=== PATIENT | male | born 1955 | race Caucasian/White ===

== ENCOUNTER 2016-12-24 05:22 | Observation (INO) | payer SELFPAY ==
[2016-12-24] VITALS (8 sets, daily range): BP systolic 103–189; BP diastolic 11–101; PULSE 76–107; RESP 16–22; TEMP 97.9–98.8; O2SAT 96–99
[~2016-12-24] VITALS: Ht 177.8 cm; Wt 66.0 kg
[2016-12-24] MEDS ORDERED: ONDANSETRON HCL 4 MG/2 ML VIAL IV ONE (05:45)
[2016-12-24] MEDS ORDERED: SODIUM CHLOR 0.9% 1000 ML INJ 1,000 ML IV ONE ×2 (05:45→07:00)
[2016-12-24] MEDS ORDERED: MORPHINE SULFATE 4 MG/ML INJ IV PUSH ONE (05:45)
[2016-12-24 05:59] LABS: AUTOMATED NEUTROPHIL # 4.8 TH/MM3 (1.8-7.7); BASOPHIL # 0.1 TH/MM3 (0-0.2); BASOPHIL % 0.8 % (0.0-2.0); EOSINOPHIL # 0.2 TH/MM3 (0-0.4); EOSINOPHIL % 2.3 % (0.0-4.0); HEMATOCRIT 41.1 % (39.0-51.0); HEMO FLAGS DIFF FINAL; LYMPH % 31.3 % (9.0-44.0); LYMPHOCYTE # 2.6 TH/MM3 (1.0-4.8); MEAN CELL VOLUME 98.6 FL (80.0-100.0); MEAN CORPUSCULAR HEMOGLOBIN 34.1 PG (27.0-34.0); MEAN CORPUSCULAR HGB CONC 34.6 % (32.0-36.0); MONO % 8.4 % (0.0-8.0); NEUT % 57.2 % (16.0-70.0); PLATELET COUNT 326 TH/MM3 (150-450); RED BLOOD COUNT 4.17 MIL/MM3 (4.50-5.90); RED CELL DISTRIBUTION WIDTH 12.6 % (11.6-17.2); WHITE BLOOD COUNT 8.3 TH/MM3 (4.0-11.0)
--- NOTE | 2016-12-24 06:19 | PD ---
HPI Chief Complaint: Abdominal Pain Time Seen by Provider: 05:32 Travel History International Travel<30 days: No Contact w/Intl Traveler<30days: No Traveled to known affect area: No History of Present Illness HPI The patient is a 61 year old male who presents to the [facility] emergency department with a history of 2 separate concerns. #1, the patient reports that over the last week and a half he's had back pain that he reports is all throughout his back and seems to change locations. He reports that the pain is not superficial. He denies the pain being brought on by any particular activity. The patient reports that the pain seems to be getting worse with time. He denies any trauma or injury. #2, the patient reports having abdominal pain off and on for the last year. He reports that the pain is an indigestion sensation with intermittent stabbing pains in the midepigastric area. The patient reports that over the last 6 months he has had a 35 pound weight loss. He reports that he does have an area of bulging in the right groin. He reports that he was evaluated yesterday in an urgent care center and told that this was likely a hernia, however as he did not have capability for imaging they recommended he go to the emergency department. He reports that he had to arrange for the care of this 92-year-old mother, therefore he could not come prior to this. The patient reports that he's had this lump for many years. He reports that when it was really small he was treated with an antibiotic and it seemed to go away. He reports that over the years it recurred and has gradually gotten bigger with time. He denies having any pain associated with it. He denies having any nausea or vomiting. He reports that he had diarrhea on Thursday and Thursday 2. He reports that a week ago he had a dark/black stool. He has not seen a primary care physician for the last 20 years for a physical. He denies ever having colonoscopy previously. The patient reports that he smokes 15 cigarettes per day. The patient denies taking anti-inflammatories on a regular basis. He reports that he did try taking Aleve and Tylenol for his back pain without relief, therefore he discontinued it. The patient reports that he usually drinks 3-6 beers over the week. Otherwise on review of systems, the patient denies any recent fevers or new or worsening cough, congestion, neck pain, chest pain, shortness of breath, urinary symptoms, or neurologic symptoms. [facility] Past Medical History Narrative Medical The patient's past medical history is significant for tobacco abuse. Medical History: Denies Significant Hx Diminished Hearing: No Tetanus Vaccination: Unknown Influenza Vaccination: No Past Surgical History Narrative Surgical The patient's past surgical history is significant for a tonsillectomy Tonsillectomy: Yes Social History Alcohol Use: Yes (3-6 beers per week) Tobacco Use: Yes (12-15 CIG DAILY) Substance Use: No Allergies-Medications (Allergen,Severity, Reaction): Coded Allergies: No Known Allergies (Unverified , 12/24/16) Reported Meds & Prescriptions Reported Meds & Active Scripts Active No Active Prescriptions or Reported Medications Review of Systems Except as stated in HPI: all other systems reviewed are Neg General / Constitutional: No: Fever Eyes: No: Visual changes HENT: No: Headaches Cardiovascular: No: Chest Pain or Discomfort, Dyspnea on exertion Respiratory: No: Shortness of Breath Gastrointestinal: Positive: Diarrhea, Changes in Bowel Habits, Indigestion, No : Nausea, Vomiting, Abdominal Pain, Loss of Appetite Genitourinary: No: Urgency, Frequency, Dysuria, Flank Pain Musculoskeletal: Positive: Myalgias, Arthralgias, Pain Skin: No Rash Neurologic: No: Weakness, Focal Abnormalities, Change in Mentation, Slurred Speech, Sensory Disturbance Psychiatric: No: Depression Endocrine: No: Polydipsia Hematologic/Lymphatic: No: Easy Bruising Physical Exam Narrative General: The patient is a well-developed thin appearing male in no acute distress. Head and Neck exam: Head is normocephalic atraumatic. Eyes: EOMI, pupils are equal round and reactive to light. Nose: Midline septum with pink mucous membranes Mouth: Dentition unremarkable. Moist mucus membranes. Posterior oropharynx is not erythematous. No tonsillar hypertrophy. Uvula midline. Airway patent. Neck: No palpable lymphadenopathy. No nuchal rigidity. No thyromegaly. Cardiovascular: Sinus tachycardia in the low 100s without murmurs, gallops, or rubs. No pulse deficit to the extremities and simultaneous auscultation and palpation of his radial artery. Lungs: Clear to auscultation bilaterally. No wheezes, rhonchi, or rales. Abdomen: Soft, with tenderness on palpation in the midepigastric area and right upper quadrant of the abdomen. No guarding, rebound, or rigidity. Negative Columbus sign. No tenderness on palpation of McBurney's point. The patient on examination of the right groin is noted to have an area of swelling that is approximately 10 cm, cystic on palpation just above the inguinal line. Extremities: No clubbing, cyanosis, or edema. 2+ pulses in all 4 extremities. No calf tenderness on palpation. Back: No spinous process tenderness to palpation. No costovertebral angle tenderness to palpation. No erythema or ecchymosis. No step-off or crepitus. Neurologic Exam: Cranial nerves 2-12 were intact on exam. Strength is 5/5 in all 4 extremities. No sensory deficits noted. Skin Exam: No rash noted. Intact skin that is warm and dry. Data Data Last Documented VS Vital Signs Date Time Temp Pulse Resp B/P Pulse Ox O2 Delivery O2 Flow Rate FiO2 12/24/16 06:03 18 12/24/16 05:57 99 149/79 97 Room Air 12/24/16 05:23 98.8 Orders Electrocardiogram (12/24/16 05:38) Complete Blood Count With Diff (12/24/16 05:38) Comprehensive Metabolic Panel (12/24/16 05:38) C-Reactive Protein (Crp) (12/24/16 05:38) Lipase (12/24/16 05:38) Urinalysis - C+S If Indicated (12/24/16 05:38) Chest, Single Ap (12/24/16 05:38) Ct Abd/Pel W Iv Contrast(Rout) (12/24/16 05:38) Iv Access Insert/Monitor (12/24/16 05:38) Ecg Monitoring (12/24/16 05:38) Oximetry (12/24/16 05:38) Lactic Acid (12/24/16 05:38) Sodium Chlor 0.9% 1000 Ml Inj (Ns 1000 M (12/24/16 05:45) Ondansetron Inj (Zofran Inj) (12/24/16 05:45) Morphine Inj (Morphine Inj) (12/24/16 05:45) Thyroid Stimulating Hormone (12/24/16 06:22) Labs Laboratory Tests Test 12/24/16 05:45 White Blood Count 8.3 TH/MM3 Red Blood Count 4.17 MIL/MM3 Hemoglobin 14.2 GM/DL Hematocrit 41.1 % Mean Corpuscular Volume 98.6 FL Mean Corpuscular Hemoglobin 34.1 PG Mean Corpuscular Hemoglobin 34.6 % Concent Red Cell Distribution Width 12.6 % Platelet Count 326 TH/MM3 Mean Platelet Volume 7.0 FL Neutrophils (%) (Auto) 57.2 % Lymphocytes (%) (Auto) 31.3 % Monocytes (%) (Auto) 8.4 % Eosinophils (%) (Auto) 2.3 % Basophils (%) (Auto) 0.8 % Neutrophils # (Auto) 4.8 TH/MM3 Lymphocytes # (Auto) 2.6 TH/MM3 Monocytes # (Auto) 0.7 TH/MM3 Eosinophils # (Auto) 0.2 TH/MM3 Basophils # (Auto) 0.1 TH/MM3 CBC Comment DIFF FINAL Differential Comment Sodium Level 136 MEQ/L Potassium Level 4.0 MEQ/L Chloride Level 99 MEQ/L Carbon Dioxide Level 28.7 MEQ/L Anion Gap 8 MEQ/L Blood Urea Nitrogen 13 MG/DL Creatinine 0.78 MG/DL Estimat Glomerular Filtration 101 ML/MIN Rate Random Glucose 119 MG/DL Lactic Acid Level 2.1 mmol/L Calcium Level 9.4 MG/DL Total Bilirubin 0.4 MG/DL Aspartate Amino Transf 9 U/L (AST/SGOT) Alanine Aminotransferase 18 U/L (ALT/SGPT) Alkaline Phosphatase 92 U/L C-Reactive Protein LESS THAN 0.29 MG/DL Total Protein 7.4 GM/DL Albumin 4.3 GM/DL Lipase 269 U/L MDM Medical Decision Making Medical Screen Exam Complete: Yes Emergency Medical Condition: Yes Medical Record Reviewed: Yes Differential Diagnosis Kidney stone, versus bowel obstruction, versus mass, versus endocrine disorder. Narrative Course During the course of the patients emergency department visit, the patients history, examination, and differential diagnosis were reviewed with the patient. The patient had IV access obtained and blood work sent for analysis. The patient is placed on a dough cutter with oximetry and blood pressure monitoring. An EKG was done on arrival. The patient's EKG shows a sinus tachycardia rate of 107, QRS duration 70 ms, QTC 380 ms. The patient has no acute ST segment elevation or depression. A chest x-ray was ordered, CT scan of the abdomen and pelvis has been ordered. The patient was initially provided a normal saline 1 L IV fluid bolus, morphine 4 mg IV, Zofran 4 mg IV. The patients laboratory studies were reviewed and remarkable for a white count of 8.3, hemoglobin 14.2, platelets 326 with a 8.4 monocytes. CMP is remarkable for a glucose of 119, AST 9, C-reactive protein less than 0.29, lipase 269, lactic acid 2.1, TSH is pending. Urinalysis is pending. Radiology studies were reviewed and remarkable for a chest x-ray showed no acute abnormality. CT scan of the abdomen and pelvis is pending. Patient's results are pending at the conclusion of my shift, the patient's case will be checked out to the oncoming emergency physician to disposition based on the conclusion of his workup. Given the patient's elevated lactic acid and additional normal saline 500 bolus was administered. Diagnosis Primary Impression: Back pain Qualified Code: M54.9 - Acute back pain, unspecified back location, unspecified back pain laterality Additional Impressions: Abdominal pain Qualified Code: R10.10 - Pain of upper abdomen Weight loss Right groin mass Scripts No Active Prescriptions or Reported Meds Mis Mccullough MD Dec 24, 2016 06:19
[2016-12-24 06:21] LABS: ALT (GPT) 18 U/L (12-78); ANION GAP 8 MEQ/L (5-15); AST (GOT) 9 U/L (15-37); BICARBONATE 28.7 MEQ/L (21.0-32.0); BLOOD UREA NITROGEN 13 MG/DL (7-18); CHLORIDE 99 MEQ/L (98-107); GLOMERULAR FILTRATION RATE 101 ML/MIN (>89); SODIUM (NA) 136 MEQ/L (136-145)
[2016-12-24 06:24] LABS: ALKALINE PHOSPHATASE 92 U/L (45-117); TOTAL BILIRUBIN ADULT 0.4 MG/DL (0.2-1.0)
--- NOTE | 2016-12-24 06:45 | RADRPT ---
EXAM DATE/TIME: 12/24/2016 06:10 [facility] COMPARISON: No previous studies available for comparison. INDICATIONS : Chest pain. MEDICAL HISTORY : None. SURGICAL HISTORY : None. ENCOUNTER: Initial ACUITY: 1 day PAIN SCORE: 7/10 LOCATION: Bilateral chest FINDINGS: A single view of the chest demonstrates the lungs to be symmetrically aerated without evidence of mas s, infiltrate or effusion. The cardiomediastinal contours are unremarkable. Osseous structures are intact. CONCLUSION: Normal examination. Fernando Webber MD on December 24, 2016 at 6:43 Board Certified Radiologist. This report was verified electronically.
[2016-12-24 06:51] LABS: BLOOD, URINE SMALL (NEG); COMMENT (UR) CULT NOT INDICATED; CULTURE IF INDICATED CULT NOT INDICATED; GLUCOSE,URINE NEG (NEG); KETONE, URINE NEG (NEG); MUCUS URINE MANY /lpf (OCC); NITRITE,URINE NEG (NEG); PH, URINE 5.5 (5.0-8.5); SQUAMOUS EPITHELIAL CELL URINE <1 /hpf (0-5); URINE COLOR DARK-YELLOW (YELLW/STRAW)
[2016-12-24] MEDS ORDERED: IOHEXOL 350 MG/ML 10 ML VIAL (for RAD DIAG) IV ONE (07:00)
[2016-12-24] MEDS ORDERED: SODIUM CHLORID 0.9% 500 ML INJ 500 ML IV ONE (07:00)
--- NOTE | 2016-12-24 07:24 | RADRPT ---
EXAM DATE/TIME: 12/24/2016 06:45 [facility] COMPARISON: No previous studies available for comparison. INDICATIONS : Bilateral lower quadrant pain. IV CONTRAST: 92 cc Omnipaque 350 (iohexol) IV ORAL CONTRAST: No oral contrast ingested. RADIATION DOSE: 5.72 CTDIvol (mGy) MEDICAL HISTORY : None SURGICAL HISTORY : None. ENCOUNTER: Initial ACUITY: 1 day PAIN SCALE: 6/10 LOCATION: Bilateral lower quadrant TECHNIQUE: Volumetric scanning of the abdomen and pelvis was performed. Using automated exposure control and ad justment of the mA and/or kV according to patient size, radiation dose was kept as low as reasonably achievable to obtain optimal diagnostic quality images. FINDINGS: LOWER LUNGS: The visualized lower lungs are clear. LIVER: Homogeneous density without lesion. There is no dilation of the biliary tree. No calcified gallston es. SPLEEN: Normal size without lesion. PANCREAS: There is a 5 cm pancreatic mass of the pancreatic body. This appears to potentially surround the sple vesna artery and abuts the common hepatic artery. It does not affect the SMA. There is atrophy of the p ancreatic tail. Pancreatic head and uncinate process are normal. KIDNEYS: Normal in size and shape. There is no mass, stone or hydronephrosis. ADRENAL GLANDS: There is generalized enlargement of the left adrenal gland. The right adrenal appears normal. VASCULAR: There is no aortic aneurysm. BOWEL/MESENTERY: There is a right inguinal hernia containing small bowel. Small bowel overall does not appear signific ant distended. There is a moderate to large stool in the colon especially on the right side. The cecu m is corrected medially and seen in the midline. This is likely secondary to a long mesentery on the cecum. The cecum measures up to 9.9 cm which is distended. The cecum is not thickened. ABDOMINAL WALL: Again noted the right inguinal hernia containing small bowel. The defect measures approximately 3 cm. The hernia sac measures 9.5 x 5.8 x 5.2 cm. RETROPERITONEUM: There is no lymphadenopathy. BLADDER: No wall thickening or mass. REPRODUCTIVE: Within normal limits. INGUINAL: There is no lymphadenopathy or hernia. MUSCULOSKELETAL: Within normal limits for patient age. CONCLUSION: 1. Right inguinal hernia with small bowel. Significant dilatation of the bowels not closely seen to s uggest obstruction however the small bowel is seen to narrow at the level of the hernia. 2. 5 cm pancreatic mass the pancreatic body very concerning for pancreatic carcinoma. This appears to surround the splenic artery and above the common hepatic artery. 3. Generalized enlargement of the left adrenal gland are somewhat hypertrophied. The right adrenal gl and is normal. 4. Distention of the cecum with stool. The cecum is directed towards the midline. This likely seconda ry to a normal variant of a long mesentery. Garth Mcclain MD on December 24, 2016 at 7:13 Board Certified Radiologist. This report was verified electronically.
--- NOTE | 2016-12-24 07:44 | PD ---
Physical Exam Date Seen by Provider: Dec 24, 2016 Time Seen by Provider: 07:00 Narrative Patient initially seen by Dr. Mccullough and signed out to me at 7 AM, please see Dr. Mccullough's note for further details. Laboratory Tests Test 12/24/16 05:45 Red Blood Count 4.17 MIL/MM3 (4.50-5.90) Mean Corpuscular Hemoglobin 34.1 PG (27.0-34.0) Monocytes (%) (Auto) 8.4 % (0.0-8.0) Urine Color DARK-YELLOW (YELLW/STRAW) Urine Protein 30 mg/dL (NEG-TRACE) Urine Occult Blood SMALL (NEG) Urine RBC 6 /hpf (0-3) Urine Mucus MANY /lpf (OCC) Random Glucose 119 MG/DL (74-106) Lactic Acid Level 2.1 mmol/L (0.4-2.0) Aspartate Amino Transf 9 U/L (15-37) (AST/SGOT) Last 24 hours Impressions Chest X-Ray 12/24/16537 Signed Impressions: Service Date/Time: Saturday, December 24, 2016 06:10 - CONCLUSION: Normal examination. Fernando Webber MD Abdomen/Pelvis CT 12/24/16537 Signed Impressions: Service Date/Time: Saturday, December 24, 2016 06:45 - CONCLUSION: 1. Right inguinal hernia with small bowel. Significant dilatation of the bowels not closely seen to suggest obstruction however the small bowel is seen to narrow at the level of the hernia. 2. 5 cm pancreatic mass the pancreatic body very concerning for pancreatic carcinoma. This appears to surround the splenic artery and above the common hepatic artery. 3. Generalized enlargement of the left adrenal gland are somewhat hypertrophied. The right adrenal gland is normal. 4. Distention of the cecum with stool. The cecum is directed towards the midline. This likely secondary to a normal variant of a long mesentery. Garth Mcclain MD Initial lab work and chest x-ray did not reveal any signs of acute processes. He does have a lump notable in the groin area. CAT scan was ordered for further evaluation. CAT scan is revealing a inguinal hernia but also reveals a mass at the head of pancreas surrounding the vessels. At this point, there is concern that this mass could be a carcinoma and plan would be to admit the patient for further evaluation. He does also appear to have some underlying dehydration with lactate elevations. IV fluids given in the ER. Case is discussed with Dr. Espinoza for admission. Data Data Last Documented VS Vital Signs Date Time Temp Pulse Resp B/P Pulse Ox O2 Delivery O2 Flow Rate FiO2 12/24/16 07:09 98.5 80 189/98 99 Room Air 12/24/16 06:03 18 Orders Electrocardiogram (12/24/16 05:38) Complete Blood Count With Diff (12/24/16 05:38) Comprehensive Metabolic Panel (12/24/16 05:38) C-Reactive Protein (Crp) (12/24/16 05:38) Lipase (12/24/16 05:38) Urinalysis - C+S If Indicated (12/24/16 05:38) Chest, Single Ap (12/24/16 05:38) Ct Abd/Pel W Iv Contrast(Rout) (12/24/16 05:38) Iv Access Insert/Monitor (12/24/16 05:38) Ecg Monitoring (12/24/16 05:38) Oximetry (12/24/16 05:38) Lactic Acid (12/24/16 05:38) Sodium Chlor 0.9% 1000 Ml Inj (Ns 1000 M (12/24/16 05:45) Ondansetron Inj (Zofran Inj) (12/24/16 05:45) Morphine Inj (Morphine Inj) (12/24/16 05:45) Thyroid Stimulating Hormone (12/24/16 06:22) Sodium Chlor 0.9% 1000 Ml Inj (Ns 1000 M (12/24/16 07:00) Sodium Chlorid 0.9% 500 Ml Inj (Ns 500 M (12/24/16 07:00) Iohexol 350 Inj (Omnipaque 350 Inj) (12/24/16 07:00) Labs Laboratory Tests Test 12/24/16 05:45 White Blood Count 8.3 TH/MM3 Red Blood Count 4.17 MIL/MM3 Hemoglobin 14.2 GM/DL Hematocrit 41.1 % Mean Corpuscular Volume 98.6 FL Mean Corpuscular Hemoglobin 34.1 PG Mean Corpuscular Hemoglobin 34.6 % Concent Red Cell Distribution Width 12.6 % Platelet Count 326 TH/MM3 Mean Platelet Volume 7.0 FL Neutrophils (%) (Auto) 57.2 % Lymphocytes (%) (Auto) 31.3 % Monocytes (%) (Auto) 8.4 % Eosinophils (%) (Auto) 2.3 % Basophils (%) (Auto) 0.8 % Neutrophils # (Auto) 4.8 TH/MM3 Lymphocytes # (Auto) 2.6 TH/MM3 Monocytes # (Auto) 0.7 TH/MM3 Eosinophils # (Auto) 0.2 TH/MM3 Basophils # (Auto) 0.1 TH/MM3 CBC Comment DIFF FINAL Differential Comment Urine Color DARK-YELLOW Urine Turbidity CLEAR Urine pH 5.5 Urine Specific [place] 1.022 Urine Protein 30 mg/dL Urine Glucose (UA) NEG mg/dL Urine Ketones NEG mg/dL Urine Occult Blood SMALL Urine Nitrite NEG Urine Bilirubin NEG Urine Urobilinogen 2.0 MG/DL Urine Leukocyte Esterase NEG Urine RBC 6 /hpf Urine WBC 2 /hpf Urine Squamous Epithelial <1 /hpf Cells Urine Mucus MANY /lpf Microscopic Urinalysis Comment CULT NOT INDICATED Sodium Level 136 MEQ/L Potassium Level 4.0 MEQ/L Chloride Level 99 MEQ/L Carbon Dioxide Level 28.7 MEQ/L Anion Gap 8 MEQ/L Blood Urea Nitrogen 13 MG/DL Creatinine 0.78 MG/DL Estimat Glomerular Filtration 101 ML/MIN Rate Random Glucose 119 MG/DL Lactic Acid Level 2.1 mmol/L Calcium Level 9.4 MG/DL Total Bilirubin 0.4 MG/DL Aspartate Amino Transf 9 U/L (AST/SGOT) Alanine Aminotransferase 18 U/L (ALT/SGPT) Alkaline Phosphatase 92 U/L C-Reactive Protein LESS THAN 0.29 MG/DL Total Protein 7.4 GM/DL Albumin 4.3 GM/DL Lipase 269 U/L Thyroid Stimulating Hormone 1.680 uIU/ML 3rd Gen [facility] Medical Record Reviewed: Yes Supervised Visit with THIEN: No Diagnosis Primary Impression: Back pain Qualified Code: M54.9 - Acute back pain, unspecified back location, unspecified back pain laterality Additional Impressions: Right groin mass Weight loss Abdominal pain Qualified Code: R10.10 - Pain of upper abdomen Pancreatic mass Admitting Information Admitting Physician Requests: Admit Scripts No Active Prescriptions or Reported Meds Arun Mercedes MD Dec 24, 2016 07:44
[2016-12-24] MEDS ORDERED: LACTULOSE SYRUP 20 GM/30 ML CUP PO PRN (08:30)
[2016-12-24] MEDS ORDERED: MAGNESIUM HYDROXIDE SUSP 30 ML CUP PO PRN (08:30)
[2016-12-24] MEDS ORDERED: SODIUM CHLORIDE 0.9% FLUSH 10 ML FLUSH IV FLUSH PRN (08:30)
[2016-12-24] MEDS ORDERED: SENNOSIDES 8.6 MG TAB PO PRN (08:30)
[2016-12-24] MEDS ORDERED: BISACODYL 10 MG SUPP RECTAL PRN (08:30)
[2016-12-24] MEDS ORDERED: ACETAMINOPHEN 325 MG TAB PO PRN (08:30)
[2016-12-24] MEDS ORDERED: NALOXONE HCL 0.4 MG/ML AMP IV PRN (08:30)
[2016-12-24] MEDS ORDERED: MORPHINE SULFATE 4 MG/ML INJ IV PUSH PRN (08:30)
[2016-12-24] MEDS ORDERED: ACETAMINOPHEN/HYDROcodone 325 MG/5 MG TAB PO PRN (08:30)
--- NOTE | 2016-12-24 08:37 | HHI.HP ---
[facility] No Primary Care Physician Admission Diagnosis pancreatic mass/dehydration Diagnoses: Chief Complaint: Abdominal pain and weight loss Travel History International Travel<30 Days: No Contact w/Intl Traveler <30 Da: No Traveled to Known Affected Are: No History of Present Illness 61-year-old pleasant male with past medical history of tobacco dependence who presented with intermittent abdominal pain and weight loss. Patient stated for the past few years he's been having intermittent abdominal pain that resolves on its own, but the last 2 months he's been having stabbing pain that he is described as intermittent. Patient stated that the last week and half the stabbing pain radiated to the back worsened and duration and now is continuous. He denies any nausea vomiting, constipation or diarrhea. Patient stated that he lost 35 pounds in the last 6 months. He stated that he has a good appetite and has not changed his diet. Patient has not seen a primary care physician in 20 years. He stated that his maternal grandmother has cancer but unknown. Review of Systems Constitutional: COMPLAINS OF: Weight loss, DENIES: Diaphoretic episodes, Fatigue, Fever, Weight gain, Chills, Dizziness, Change in appetite, Night Sweats Endocrine: DENIES: Heat/cold intolerance, Polydipsia, Polyuria, Polyphagia Eyes: DENIES: Blurred vision, Diplopia, Eye inflammation, Eye pain, Vision loss , Photosensitivity, Double Vision Ears, nose, mouth, throat: DENIES: Tinnitus, Hearing loss, Vertigo, Nasal discharge, Oral lesions, Throat pain, Hoarseness, Ear Pain, Running Nose, Epistaxis, Sinus Pain, Toothache, Odynophagia Respiratory: DENIES: Apneas, Cough, Snoring, Wheezing, Hemoptysis, Sputum production, Shortness of breath Cardiovascular: DENIES: Chest pain, Palpitations, Syncope, Dyspnea on Exertion , PND, Lower Extremity Edema, Orthopnea, Claudication Gastrointestinal: COMPLAINS OF: Abdominal pain, Anorexia, DENIES: Black stools , Bloody stools, Constipation, Diarrhea, Nausea, Vomiting, Difficulty Swallowing Genitourinary: DENIES: Sexual dysfunction, Urinary frequency, Urinary incontinence, Urgency, Hematuria, Dysuria, Nocturia, Penile Discharge, Testicular Pain, Testicular Swelling Musculoskeletal: DENIES: Joint pain, Muscle aches, Stiffness, Joint Swelling, Back pain, Neck pain Integumentary: DENIES: Abnormal pigmentation, Nail changes, Pruritus, Rash Hematologic/lymphatic: DENIES: Bruising, Lymphadenopathy Immunologic/allergic: DENIES: Eczema, Urticaria Neurologic: DENIES: Abnormal gait, Headache, Localized weakness, Paresthesias, Seizures, Speech Problems, Tremor, Poor Balance Psychiatric: DENIES: Anxiety, Confusion, Mood changes, Depression, Hallucinations, Agitation, Suicidal Ideation, Homicidal Ideation, Delusions Past Family Social History Past Medical History Tobacco dependence smoked for 42 years. Past Surgical History Tonsillectomy Reported Medications No Active Prescriptions or Reported Medications Allergies: Coded Allergies: No Known Allergies (Unverified , 12/24/16) Active Ordered Medications Current Medications Sodium Chloride (NS 1000 ml Inj) 1,000 ml @ 1,000 mls/hr Q1H ONCE IV Last administered on 12/24/16 05:57; Start 12/24/16 at 05:45; Stop 12/24/16 at 06:44; Status DC Ondansetron HCl (Zofran Inj) 4 mg ONCE ONCE IV Last administered on 12/24/16 05:57; Start 12/24/16 at 05:45; Stop 12/24/16 at 05:46; Status DC Morphine Sulfate 4 mg 4 mg ONCE ONCE IV PUSH Last administered on 12/24/16 05: 57; Start 12/24/16 at 05:45; Stop 12/24/16 at 05:46; Status DC Sodium Chloride 1,000 ml @ 1,000 mls/hr Q1H ONCE IV Last administered on 07:09; Start 12/24/16 at 07:00; Stop 12/24/16 at 07:59; Status DC Sodium Chloride (NS 500 ml Inj) 500 ml @ 500 mls/hr BOLUS ONCE IV Last administered on 12/24/16 07:08; Start 12/24/16 at 07:00; Stop 12/24/16 at 07:59; Status DC Iohexol (Omnipaque 350 Inj) 92 ml STK-MED ONCE IV Last administered on 07:00; Start 12/24/16 at 07:00; Stop 12/24/16 at 07:01; Status DC Family History His mother had a history of diabetes. Maternal grandmother had a history of an unknown cancer. 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 Smokes about 12-15 cigars a day for the past 42 years. Occasionally drinks alcohol. Denies illicit drug use. Physical Exam Vital Signs Vital Signs Date Time Temp Pulse Resp B/P Pulse Ox O2 Delivery O2 Flow Rate FiO2 12/24/16 07:09 98.5 80 189/98 99 Room Air 12/24/16 06:03 18 12/24/16 05:57 99 16 149/79 97 Room Air 12/24/16 05:42 16 12/24/16 05:26 16 12/24/16 05:23 98.8 107 16 183/101 99 Physical Exam GENERAL: This is a well-nourished, well-developed patient, in no apparent distress. SKIN: No rashes, ecchymoses or lesions. Cool and dry. HEAD: Atraumatic. Normocephalic. No temporal or scalp tenderness. EYES: Pupils equal round and reactive. Extraocular motions intact. No scleral icterus. No injection or drainage. ENT: Nose without bleeding, purulent drainage or septal hematoma. Throat without erythema, tonsillar hypertrophy or exudate. Uvula midline. Airway patent. NECK: Trachea midline. No JVD or lymphadenopathy. Supple, nontender, no meningeal signs. CARDIOVASCULAR: Regular rate and rhythm without murmurs, gallops, or rubs. RESPIRATORY: Clear to auscultation. Breath sounds equal bilaterally. No wheezes , rales, or rhonchi. GASTROINTESTINAL: Abdomen soft, non-tender, nondistended. No hepato- splenomegaly. No guarding. Right inguinal hernia non-tenderness to palpation unable to reduce. MUSCULOSKELETAL: Extremities without clubbing, cyanosis, or edema. No joint tenderness, effusion, or edema noted. No calf tenderness. Negative Homans sign bilaterally. NEUROLOGICAL: Awake and alert. Cranial nerves II through XII intact. Motor and sensory grossly within normal limits. Five out of 5 muscle strength in all muscle groups. Normal speech. Laboratory Laboratory Tests Test 12/24/16 05:45 White Blood Count 8.3 Red Blood Count 4.17 Hemoglobin 14.2 Hematocrit 41.1 Mean Corpuscular Volume 98.6 Mean Corpuscular Hemoglobin 34.1 Mean Corpuscular Hemoglobin 34.6 Concent Red Cell Distribution Width 12.6 Platelet Count 326 Mean Platelet Volume 7.0 Neutrophils (%) (Auto) 57.2 Lymphocytes (%) (Auto) 31.3 Monocytes (%) (Auto) 8.4 Eosinophils (%) (Auto) 2.3 Basophils (%) (Auto) 0.8 Neutrophils # (Auto) 4.8 Lymphocytes # (Auto) 2.6 Monocytes # (Auto) 0.7 Eosinophils # (Auto) 0.2 Basophils # (Auto) 0.1 CBC Comment DIFF FINAL Differential Comment Urine Color DARK-YELLOW Urine Turbidity CLEAR Urine pH 5.5 Urine Specific [place] 1.022 Urine Protein 30 Urine Glucose (UA) NEG Urine Ketones NEG Urine Occult Blood SMALL Urine Nitrite NEG Urine Bilirubin NEG Urine Urobilinogen 2.0 Urine Leukocyte Esterase NEG Urine RBC 6 Urine WBC 2 Urine Squamous Epithelial <1 Cells Urine Mucus MANY Microscopic Urinalysis Comment CULT NOT INDICATED Sodium Level 136 Potassium Level 4.0 Chloride Level 99 Carbon Dioxide Level 28.7 Anion Gap 8 Blood Urea Nitrogen 13 Creatinine 0.78 Estimat Glomerular Filtration 101 Rate Random Glucose 119 Lactic Acid Level 2.1 Calcium Level 9.4 Total Bilirubin 0.4 Aspartate Amino Transf 9 (AST/SGOT) Alanine Aminotransferase 18 (ALT/SGPT) Alkaline Phosphatase 92 C-Reactive Protein LESS THAN 0.29 Total Protein 7.4 Albumin 4.3 Lipase 269 Thyroid Stimulating Hormone 1.680 3rd Gen Result Diagram: 12/24/1654412/24/16544 Imaging Last Impressions Chest X-Ray 12/24/16537 Signed Impressions: Service Date/Time: Saturday, December 24, 2016 06:10 - CONCLUSION: Normal examination. Fernando Webber MD Abdomen/Pelvis CT 12/24/16537 Signed Impressions: Service Date/Time: Saturday, December 24, 2016 06:45 - CONCLUSION: 1. Right inguinal hernia with small bowel. Significant dilatation of the bowels not closely seen to suggest obstruction however the small bowel is seen to narrow at the level of the hernia. 2. 5 cm pancreatic mass the pancreatic body very concerning for pancreatic carcinoma. This appears to surround the splenic artery and above the common hepatic artery. 3. Generalized enlargement of the left adrenal gland are somewhat hypertrophied. The right adrenal gland is normal. 4. Distention of the cecum with stool. The cecum is directed towards the midline. This likely secondary to a normal variant of a long mesentery. Garth Mcclain MD Assessment and Plan Assessment and Plan 61-year-old male with tobacco dependence who presented with Intermittent and abdominal pain -Scanned the abdomen/pelvis shows 2. 5 cm pancreatic mass the pancreatic body very concerning for pancreatic carcinoma, generalized enlargement of the left adrenal gland are somewhat hypertrophied. The right adrenal gland is normal, distention of the cecum with stool. Hernia with no obstruction but narrowing at the hernia site. -Pain most likely secondary to pancreatic mass. -Will consult oncologist. Patient will need a biopsy and metastatic workup. Will get tumor marker. Will wait for oncologist recommendation. -Will give Questa for pain control. Anorexia/weight loss -Most likely secondary to cancer. See workup as above. -Consult dietitian. Right inguinal hernia -Unable to produce at bedside. No signs of obstruction or incarceration. -Asymptomatic. -We'll continue to monitor clinically. Tobacco dependence -Smoking cessation. -Will give nicotine patch. DVT prophylaxis -Heparin Code Status full Discussed Condition With patient Starr Espinoza MD Dec 24, 2016 08:37
[2016-12-24] MEDS: SODIUM CHLORIDE 0.9% FLUSH 10 ML FLUSH IV FLUSH SCH ×2 (09:00→19:33)
--- NOTE | 2016-12-24 09:45 | RADRPT ---
EXAM DATE/TIME: 12/24/2016 00:00 COMPARISON: CT ABDOMEN & PELVIS W CONTRAST, December 24, 2016, 6:45. INDICATIONS : pancreatic biopsy CONSULTATION: I have been asked to perform percutaneous biopsy of the mass in the body of the pancreas. This is no t amenable to percutaneous biopsy because of the colon. This should be accessible by endoscopic ultr asound guided biopsy. Thank you for this consultation. Davion Barrientos MD FACR on December 24, 2016 at 9:39 Board Certified Radiologist. This report was verified electronically.
[2016-12-24] MEDS: DOCUSATE SODIUM 50 MG/SENNA 8.6 MG TAB PO SCH ×2 (10:22→19:30)
[2016-12-24] MEDS: ACETAMINOPHEN/HYDROcodone 325 MG/5 MG TAB PO PRN ×2 (10:22→19:31)
[2016-12-24] MEDS: SODIUM CHLOR 0.9% 1000 ML INJ 1,000 ML IV SCH ×2 (10:23→18:24)
[2016-12-24] MEDS: NICOTINE 21 MG/24 HR PATCH T-DERMAL SCH (10:23)
[2016-12-24] MEDS: HEPARIN SODIUM - SQ 10,000 UNITS/ML VIAL SQ SCH ×2 (10:23→18:12)
[2016-12-24 10:56] LABS: APTT (PATIENT) 25.8 SEC (24.3-30.1); PROTHROMBIN TIME - PATIENT 10.7 SEC (9.8-11.6)
--- NOTE | 2016-12-24 15:57 | EKG ---
Date Performed: 12/24/2016 Time Performed: 05:47:15 PTAGE: 61 years EKG: SINUS TACHYCARDIA ABNORMAL RHYTHM ECG NO PREVIOUS TRACING DOCTOR: Geovany Gordon Interpretating Date/Time 12/24/2016 15:56:09
--- NOTE | 2016-12-24 16:49 | PD.CONS ---
HPI History of Present Illness This is a 61 year old gentleman who presented to ER this morning for abdominal and back pain. Abdominal pain onset few months ago, felt like "indigestion" with occasional sharp exacerbations and then a week and a half ago the pain radiated to his back and continued to worsen and last longer. tHe last few days these pains have been constant. some nausea, no vomiting. He had 2 days of diarrhea a few days ago but that has resolved. He does admit black stools 4- 5 days ago for 2 days in duration but none since. Never had this pain before. He has lost 35 lbs in the last 6 months, no change in appetite or diet. Never had EGD or colonoscopy. Occasional ETOH, he will have a few beers if working outside but not more than 6 per week. Had been using aleve for 1 week daily for this pain. PFSH Past Medical History none Past Surgical History Tonsillectomy Coded Allergies: No Known Allergies (Unverified , 12/24/16) Family History His mother had a history of diabetes. Maternal grandmother had a history of an unknown cancer. Social History smokes 12-15 cigarettes daily occasional ETOH - 6 per week no illicit drugs Review of Systems Constitutional: DENIES: Fever Eyes: DENIES: Blurred vision Ears, nose, mouth, throat: DENIES: Hearing loss Respiratory: DENIES: Cough, Shortness of breath Cardiovascular: DENIES: Palpitations Gastrointestinal: COMPLAINS OF: Abdominal pain, Black stools, Nausea, DENIES: Bloody stools, Constipation, Diarrhea, Vomiting GI Exam Vitals I&O Vital Signs Date Time Temp Pulse Resp B/P Pulse Ox O2 Delivery O2 Flow Rate FiO2 12/24/16 15:31 98.2 77 18 164/88 99 12/24/16 11:56 98.2 76 18 168/83 96 12/24/16 11:22 18 12/24/16 10:21 80 22 153/85 98 12/24/16 07:09 98.5 80 189/98 99 Room Air 12/24/16 06:03 18 12/24/16 05:57 99 16 149/79 97 Room Air 12/24/16 05:42 16 12/24/16 05:26 16 12/24/16 05:23 98.8 107 16 183/101 99 Imaging Last Impressions Chest X-Ray 12/24/16537 Signed Impressions: Service Date/Time: Saturday, December 24, 2016 06:10 - CONCLUSION: Normal examination. Fernando Webber MD Abdomen/Pelvis CT 12/24/16537 Signed Impressions: Service Date/Time: Saturday, December 24, 2016 06:45 - CONCLUSION: 1. Right inguinal hernia with small bowel. Significant dilatation of the bowels not closely seen to suggest obstruction however the small bowel is seen to narrow at the level of the hernia. 2. 5 cm pancreatic mass the pancreatic body very concerning for pancreatic carcinoma. This appears to surround the splenic artery and above the common hepatic artery. 3. Generalized enlargement of the left adrenal gland are somewhat hypertrophied. The right adrenal gland is normal. 4. Distention of the cecum with stool. The cecum is directed towards the midline. This likely secondary to a normal variant of a long mesentery. Garth Mcclain MD Laboratory Test 12/24/16 12/24/16 05:45 10:27 White Blood Count 8.3 TH/MM3 Red Blood Count 4.17 MIL/MM3 Hemoglobin 14.2 GM/DL Hematocrit 41.1 % Mean Corpuscular Volume 98.6 FL Mean Corpuscular Hemoglobin 34.1 PG Mean Corpuscular Hemoglobin 34.6 % Concent Red Cell Distribution Width 12.6 % Platelet Count 326 TH/MM3 Mean Platelet Volume 7.0 FL Neutrophils (%) (Auto) 57.2 % Lymphocytes (%) (Auto) 31.3 % Monocytes (%) (Auto) 8.4 % Eosinophils (%) (Auto) 2.3 % Basophils (%) (Auto) 0.8 % Neutrophils # (Auto) 4.8 TH/MM3 Lymphocytes # (Auto) 2.6 TH/MM3 Monocytes # (Auto) 0.7 TH/MM3 Eosinophils # (Auto) 0.2 TH/MM3 Basophils # (Auto) 0.1 TH/MM3 CBC Comment DIFF FINAL Differential Comment Urine Color DARK-YELLOW Urine Turbidity CLEAR Urine pH 5.5 Urine Specific [place] 1.022 Urine Protein 30 mg/dL Urine Glucose (UA) NEG mg/dL Urine Ketones NEG mg/dL Urine Occult Blood SMALL Urine Nitrite NEG Urine Bilirubin NEG Urine Urobilinogen 2.0 MG/DL Urine Leukocyte Esterase NEG Urine RBC 6 /hpf Urine WBC 2 /hpf Urine Squamous Epithelial <1 /hpf Cells Urine Mucus MANY /lpf Microscopic Urinalysis Comment CULT NOT INDICATED Sodium Level 136 MEQ/L Potassium Level 4.0 MEQ/L Chloride Level 99 MEQ/L Carbon Dioxide Level 28.7 MEQ/L Anion Gap 8 MEQ/L Blood Urea Nitrogen 13 MG/DL Creatinine 0.78 MG/DL Estimat Glomerular Filtration 101 ML/MIN Rate Random Glucose 119 MG/DL Lactic Acid Level 2.1 mmol/L Calcium Level 9.4 MG/DL Total Bilirubin 0.4 MG/DL Aspartate Amino Transf 9 U/L (AST/SGOT) Alanine Aminotransferase 18 U/L (ALT/SGPT) Alkaline Phosphatase 92 U/L C-Reactive Protein LESS THAN 0.29 MG/DL Total Protein 7.4 GM/DL Albumin 4.3 GM/DL Lipase 269 U/L Thyroid Stimulating Hormone 1.680 uIU/ML 3rd Gen Prothrombin Time 10.7 SEC Prothromb Time International 1.0 RATIO Ratio Activated Partial 25.8 SEC Thromboplast Time Carcinoembryonic Antigen 1.9 NG/ML CA 19-9 Antigen 40.1 U/ML Physical Examination HEENT: EOMI; normocephalic; atraumatic; no jaundice. CHEST: CTA CARDIAC: RRR ABDOMEN: Soft, nondistended, mild epigastriC TTP; no hepatosplenomegaly; bowel sounds are present in all four quadrants. EXTREMITIES: No clubbing, cyanosis, or edema. SKIN: Normal; no rash; no jaundice. ECONOMETRICS PROFESSOR: No focal deficits; alert and oriented times three. Assessment and Plan Plan ASSESSMENT - pancreatic mass - CT - 12-24- --> 1. Right inguinal hernia with small bowel. Significant dilatation of the bowels not closely seen to suggest obstruction however the small bowel is seen to narrow at the level of the hernia. 2. 5 cm pancreatic mass the pancreatic body very concerning for pancreatic carcinoma. This appears to surround the splenic artery and above the common hepatic artery. 3. Generalized enlargement of the left adrenal gland are somewhat hypertrophied. The right adrenal gland is normal. 4. Distention of the cecum with stool. The cecum is directed towards the midline. This likely secondary to a normal variant of a long mesentery. Per IR mass not amenable to percutaneous bx. Will do EUS - abd pain - likely 2/2 above PLAN - EUS in am - SG today - NPO after midnight - pain medication prn - further recommendations to follow This pt seen by myself and Dr Huffman and this note is written on his behalf Ramila Cabral Dec 24, 2016 16:49
[2016-12-25 00:15] VITALS: BP 142/77; PULSE 76; RESP 20; TEMP 98; O2SAT 98
[2016-12-25] MEDS: HEPARIN SODIUM - SQ 10,000 UNITS/ML VIAL SQ SCH ×2 (02:00→09:16)
[2016-12-25] MEDS: ACETAMINOPHEN/HYDROcodone 325 MG/5 MG TAB PO PRN ×3 (04:32→19:22)
[2016-12-25 04:36] VITALS: BP 158/85; PULSE 70; RESP 20; TEMP 98; O2SAT 98
[2016-12-25] MEDS: SODIUM CHLOR 0.9% 1000 ML INJ 1,000 ML IV SCH ×2 (05:00→09:16)
[2016-12-25 08:06] VITALS: BP 151/80; PULSE 72; RESP 20; TEMP 97.9; O2SAT 99
[2016-12-25] MEDS: REMOVE OLD PATCH T-DERMAL SCH (09:00)
[2016-12-25] MEDS: NICOTINE 21 MG/24 HR PATCH T-DERMAL SCH (09:14)
[2016-12-25] MEDS: SODIUM CHLORIDE 0.9% FLUSH 10 ML FLUSH IV FLUSH SCH ×2 (09:15→21:13)
[2016-12-25] MEDS: DOCUSATE SODIUM 50 MG/SENNA 8.6 MG TAB PO SCH ×2 (09:15→21:12)
--- NOTE | 2016-12-25 10:14 | MB ---
cc: SIS LESTER MD, RUBY ANNE E. M.D. DATE OF CONSULTATION 12/24/2016 DATE OF [address] Sis Lester CHIEF COMPLAINT Dr. Lester requested consultation with Mr. Mack regarding pancreatic head mass. HISTORY OF PRESENT ILLNESS Mr. Mack is a 61-year-old man with no significant past history except for tobacco use. He has no health insurance. He has deferred seeing someone for his inguinal hernia. Over the last several years, it has remained extended out and does not reduce any more. He denies any pain or discomfort or changes in his bowel habits related to the hernia. Over the last two months, he has had stabbing pain intermittently in the abdomen. It is radiating to the back and has worsened. His has lost 35 pounds over the last six months. His appetite is good. He continues to eat. 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 He went to an urgent care prior to coming to [place]. They learned of his symptoms and advised him to come to [facility] for evaluation. He is noted to have hypertension, dehydration and back pain with a right groin mass. A CT scan of the abdomen was performed on 12/24/2016. The finding shows a right inguinal hernia with small bowel in it. There is significant dilatation of the bowel not closely seen to suggest obstruction. Additional finding is a 5 cm pancreatic mass at the body of the pancreas concerning for pancreatic carcinoma. The mass appears to surround the splenic artery above the common hepatic artery. There is enlargement of the left adrenal gland while the right adrenal gland is normal. With this finding, he was admitted. Hematology/Oncology is consulted. LABORATORY DATA Laboratory evaluation shows a normal CBC. His renal function is normal, tumor markers CA19-9 is 40.1 which is only mildly elevated compared to the size of the pancreatic mass. PAST MEDICAL HISTORY 1. Diagnosed hypertension 2. Unintentional weight loss 3. Chronic tobacco use 4. Right inguinal hernia PAST SURGICAL HISTORY Tonsillectomy FAMILY HISTORY Mother has diabetes. Father of a coal mining accident. 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 He smokes daily for over 42 years. He drinks alcohol occasionally. Denies any illicit drug use. PHYSICAL EXAMINATION Temperature 97.9 heart rate 81, respiratory 20, blood pressure 103/72. His blood pressure was significantly elevated on admission. HEAD, EYES, EARS, NOSE, AND THROAT: His pupils are round and reactive to light and accommodation. Sclerae nonicteric. Oropharynx is clear. NECK: Supple. LUNGS: Clear. CARDIOVASCULAR: Exam reveals a normal rate and rhythm. ABDOMEN: Benign. A right inguinal hernia with a round soft tissue mass which is soft, a non-reducible hernia. EXTREMITIES: Lower extremities with no edema. NEUROLOGIC: Exam is nonfocal. LABORATORY DATA CBC is normal. Lactic acid is elevated 2.1 CA19.9 is 40.1, TSH and CEA are normal. ASSESSMENT/PLAN Mr. Mack is a 61-year-old man with a long history of tobacco use, undiagnosed hypertension, unintentional weight loss and a pancreatic body mass. I had a lengthy discussion with Mr. Hardy for the concern for pancreatic cancer. He was seen by gastroenterology and endoscopic ultrasound is planned for tomorrow. We are hopeful that a biopsy could confirm a diagnosis of pancreatic cancer which is suspected. He does not have evidence of distant metastatic disease in the abdomen. I will obtain a CT scan of the chest to rule out metastatic disease to the lung. We will also rule out a second primary in light of his chronic history of smoking. We like to exclude the possibility of primary lung cancer and metastatic disease to the pancreas. The clinical significance of the enlarged adrenal gland will need to be further evaluated. He is offered my card and followup on an outpatient basis to continue workup. Interestingly, the CA19-9 is not significantly elevated leading questions to the possibility of another primary metastatic to the pancreas. Further recommendations depending on the findings of biopsy. We discussed in general terms the treatment for pancreatic cancer. The only curative treatment is a definitive resection of pancreatic cancer. At this juncture, it is not clear if his pancreatic cancer is amenable to definitive resection. We will defer to oncologic surgeon to make that determination. In the meantime, we discussed the possibility of perioperative neoadjuvant chemotherapy to make him resectable as an option. He has poor support locally. He and his mother are discussing the option of putting her in an assisted living facility since he would rather do that in [place] than go to live with her daughter in [place]. Mr. Ann's questions were answered to his satisfaction. MD BETHEL Morse/FAUSTINA /9:33 PM 9:55 AM
[2016-12-25] MEDS ORDERED: cloNIDine HCL 0.1 MG TAB PO PRN (10:45)
--- NOTE | 2016-12-25 11:02 | HHI.PR ---
Subjective Remarks Follow up for abdominal pain and pancreatic mass. The patient is doing well today. He states the pain is well controlled with Tolar. He was tolerating diet yesterday with no vomiting. He states he had diarrhea last weekend, but he had a normal bowel movement on Thursday. He has had decreased bowel movements , but states he has been having poor appetite and oral intake. He denies any fevers or chills. He understands the need to follow up with oncology as outpatient. Going for endoscopic ultrasound with GI today. Patient reports he' s had a right inguinal hernia for quite some time, denies any pain. Objective Vitals Vital Signs Date Time Temp Pulse Resp B/P Pulse Ox O2 Delivery O2 Flow Rate FiO2 12/25/16 08:06 97.9 72 20 151/80 99 12/25/16 05:56 16 12/25/16 04:36 98.0 70 20 158/85 98 12/25/16 00:15 98.0 76 20 142/77 98 12/24/16 20:03 97.9 81 20 103/72 98 12/24/16 15:31 98.2 77 18 164/88 99 12/24/16 11:56 98.2 76 18 168/83 96 I/O 12/24/16 12/24/16 12/24/16 12/25/16 12/25/16 12/25/16 07:00 15:00 23:00 07:00 15:00 23:00 Intake Total 200 ml Balance 200 ml Intake Oral 200 ml # Voids 2 Result Diagram: 12/24/16 0545 12/24/16544 Imaging Last Impressions Chest X-Ray 12/24/16537 Signed Impressions: Service Date/Time: Saturday, December 24, 2016 06:10 - CONCLUSION: Normal examination. Fernando Webber MD Abdomen/Pelvis CT 12/24/16537 Signed Impressions: Service Date/Time: Saturday, December 24, 2016 06:45 - CONCLUSION: 1. Right inguinal hernia with small bowel. Significant dilatation of the bowels not closely seen to suggest obstruction however the small bowel is seen to narrow at the level of the hernia. 2. 5 cm pancreatic mass the pancreatic body very concerning for pancreatic carcinoma. This appears to surround the splenic artery and above the common hepatic artery. 3. Generalized enlargement of the left adrenal gland are somewhat hypertrophied. The right adrenal gland is normal. 4. Distention of the cecum with stool. The cecum is directed towards the midline. This likely secondary to a normal variant of a long mesentery. Garth Mcclain MD Objective Remarks GENERAL: Well-developed well-nourished. In no acute distress. SKIN: Warm and dry. No lesions noted. HEENT: Normocephalic. Pupils equal and round. Mucous membranes pink and moist. CARDIOVASCULAR: Regular rate and rhythm. No murmur appreciated. RESPIRATORY: No accessory muscle use. Clear to auscultation. Breath sounds equal bilaterally. GASTROINTESTINAL: Abdomen soft, non-tender, nondistended. Bowel sounds x4. Reducible right inguinal swelling, nontender. MUSCULOSKELETAL: No obvious deformities. No clubbing or cyanosis. No edema. NEUROLOGICAL: Awake and alert. No focal neurological deficits. Moves upper and lower extremities spontaneously. Normal speech. PSYCHIATRIC: Appropriate mood and affect; insight and judgment normal. A/P Assessment and Plan 61-year-old male with tobacco dependence who presented with And creatinine mass and abdominal pain Reviewed: CT abdomen and pelvis with 5 cm pancreatic mass concerning for pancreatic carcinoma; generalized enlargement of the left adrenal gland; right inguinal hernia with small bowel without significant dilation of the bowels to suggest obstruction; stool in the cecum. CA-19-9 is mildly elevated. -Consulted oncologist. Recommended biopsy and chest CT, otherwise outpatient follow-up. Patient will need a biopsy and metastatic workup. Will get tumor marker. Will wait for oncologist recommendation. -GI consulted for endoscopic ultrasound and biopsy -Tolar prn for pain control. -Bowel regimen Anorexia/weight loss -Most likely secondary to cancer. See workup as above. -Consulted dietitian. Right inguinal hernia, seen on exam and abdominal CT No signs of obstruction or incarceration. -Asymptomatic. -We'll continue to monitor clinically. -Outpatient surgery follow-up electively. Elevated blood pressure, labile. Patient stated that he checks his blood pressure frequently at home and it has been normal with BP running in 120s/70s. Suspect secondary to pain/stressor, although he may have underlying hypertension. -Controlled pain. -Clonidine as needed -Monitor and adjust medications as indicated. Tobacco dependence -Smoking cessation. -Will give nicotine patch. DVT prophylaxis -Heparin Discharge Planning Awaiting endoscopic ultrasound with biopsy and CT chest. Chapo Guardado Dec 25, 2016 11:02
[2016-12-25] MEDS ORDERED: MAGNESIUM HYDROXIDE SUSP 30 ML CUP PO ONE (11:30)
--- NOTE | 2016-12-25 13:46 | RADRPT ---
EXAM DATE/TIME: 12/25/2016 11:51 [facility] COMPARISON: No previous studies available for comparison. INDICATIONS : Rule out lung mass. RADIATION DOSE: 3.56 CTDIvol (mGy) MEDICAL HISTORY : None Pancreatic body mass. SURGICAL HISTORY : None. ENCOUNTER: Subsequent ACUITY: 1 day PAIN SCALE: 0/10 LOCATION: chest TECHNIQUE: Volumetric scanning of the chest was performed. Using automated exposure control and adjustment of t he mA and/or kV according to patient size, radiation dose was kept as low as reasonably achievable to obtain optimal diagnostic quality images. FINDINGS: LUNGS: No significant focal parenchymal abnormality. Specifically, no significant mass or nodule. PLEURAE: There is no pleural thickening or pleural effusion. MEDIASTINUM: The heart and great vessels demonstrate no acute abnormality. There is no significant mediastinal or hilar lymphadenopathy. AXILLAE: Within normal limits. No significant lymphadenopathy. MUSCULOSKELETAL: Within normal limits for patient age. No abnormal lytic or blastic bony lesions. MISCELLANEOUS: Ill-defined pancreatic mass again noted. CONCLUSION: 1. No evidence for thoracic metastatic disease. Morro Phan MD on December 25, 2016 at 13:39 Board Certified Radiologist. This report was verified electronically.
[2016-12-25] MEDS ORDERED: MIDAZOLAM HCL 2 MG/2 ML VIAL ONE (15:37)
[2016-12-25] MEDS ORDERED: PROPOFOL 200 MG/20 ML AMP IV PUSH ONE (16:45)
[2016-12-25] MEDS ORDERED: DO NOT ADM ANY ANTICOAGULANT DRUGS PRN (17:00)
--- NOTE | 2016-12-25 17:25 | PD.PROCEDR ---
GI Procedure REFERRING PHYSICIAN Dr. Malagon PERFORMED EUS with FNA INDICATION FOR PROCEDURE Pancreatic mass PROCEDURE: The procedure, risks and benefits were discussed with Mr. Mack and informed consent was obtained. Anesthesia sedated him with Diprivan. He was placed in the left lateral decubitus position. EUS: The Pentax videoscope was introduced through the oropharynx and advanced to the stomach. FINDINGS: There was a large hypoechoic density in the mid pancreatic body very irregular adjacent to vascular structures but no obvious regional lymphadenopathy FNA was performed it felt soft but a good core was obtained EUS was otherwise unremarkable ESTIMATED BLOOD LOSS: None SPECIMENS REMOVED: Pancreatic body COMPLICATIONS: None IMPRESSION: Pancreatic body mass PLAN: Await biopsy Supportive care Elliott Flores MD Dec 25, 2016 17:25
[2016-12-25] MEDS: amLODIPine BESYLATE 5 MG TAB PO SCH (18:50)
[2016-12-25 23:47] VITALS: BP 146/75; PULSE 70; RESP 18; TEMP 98.4; O2SAT 99
[2016-12-26] MEDS: ACETAMINOPHEN/HYDROcodone 325 MG/5 MG TAB PO PRN ×2 (00:42→06:10)
[2016-12-26 05:02] LABS: HEMATOCRIT 35.2 % (39.0-51.0); MEAN CELL VOLUME 98.9 FL (80.0-100.0); MEAN CORPUSCULAR HEMOGLOBIN 34.1 PG (27.0-34.0); MEAN CORPUSCULAR HGB CONC 34.5 % (32.0-36.0); PLATELET COUNT 268 TH/MM3 (150-450); RED BLOOD COUNT 3.56 MIL/MM3 (4.50-5.90); RED CELL DISTRIBUTION WIDTH 12.4 % (11.6-17.2); REVIEW FLAG FINAL; WHITE BLOOD COUNT 5.8 TH/MM3 (4.0-11.0)
[2016-12-26 05:03] VITALS: BP 141/96; PULSE 79; RESP 20; TEMP 97.3; O2SAT 98
[2016-12-26 05:35] LABS: ALKALINE PHOSPHATASE 81 U/L (45-117); ALT (GPT) 13 U/L (12-78); ANION GAP 5 MEQ/L (5-15); AST (GOT) 7 U/L (15-37); BICARBONATE 31.6 MEQ/L (21.0-32.0); BLOOD UREA NITROGEN 13 MG/DL (7-18); CHLORIDE 106 MEQ/L (98-107); GLOMERULAR FILTRATION RATE 123 ML/MIN (>89); POTASSIUM 4.9 MEQ/L (3.5-5.1); SODIUM (NA) 143 MEQ/L (136-145); TOTAL BILIRUBIN ADULT 0.3 MG/DL (0.2-1.0)
[2016-12-26] MEDS: SODIUM CHLOR 0.9% 1000 ML INJ 1,000 ML IV SCH (06:11)
[2016-12-26 08:16] VITALS: BP 126/90; PULSE 86; RESP 18; TEMP 97.8; O2SAT 100
[2016-12-26] MEDS: SODIUM CHLORIDE 0.9% FLUSH 10 ML FLUSH IV FLUSH SCH (09:00)
[2016-12-26] MEDS: REMOVE OLD PATCH T-DERMAL SCH (09:18)
[2016-12-26] MEDS: NICOTINE 21 MG/24 HR PATCH T-DERMAL SCH (09:18)
[2016-12-26] MEDS: amLODIPine BESYLATE 5 MG TAB PO SCH (09:18)
[2016-12-26] MEDS: DOCUSATE SODIUM 50 MG/SENNA 8.6 MG TAB PO SCH (09:19)
[2016-12-26] MEDS ORDERED: HYDR-3516 PO (09:53)
[2016-12-26] MEDS ORDERED: AMLO5 PO (10:02)
[2016-12-26] MEDS ORDERED: SENN1TAB PO (10:02)
--- NOTE | 2016-12-26 10:02 | HHI.DCPOC ---
Discharge Care Plan Diagnosis: (1) Pancreatic mass (2) Abdominal pain (3) Hypertension (4) Back pain Goals to Promote Your Health * To prevent worsening of your condition and complications * To maintain your health at the optimal level Directions to Meet Your Goals Take your medications as prescribed Follow your dietary instruction Follow activity as directed Keep your appointments as scheduled Take your immunizations and boosters as scheduled If your symptoms worsen call your PCP, if no PCP go to Urgent Care Center or Emergency Room Smoking is Dangerous to Your Health. Avoid second hand smoke Call the 24-hour hour crisis hotline for domestic abuse at Kamilah Zelaya PA-C Dec 26, 2016 10:02 am
--- NOTE | 2016-12-26 10:18 | HHI.DS ---
cc: Elizabeth Salazar MD Discharge Summary Admission Date Dec 24, 2016 at 07:55 Discharge Date: Dec 26, 2016 Admitting Diagnosis pancreatic mass/dehydration (1) Pancreatic mass ICD Code: K86.9 Diagnosis: Principal (2) Abdominal pain ICD Code: R10.9 Diagnosis: Principal (3) Back pain ICD Code: M54.9 Diagnosis: Secondary (4) Hypertension ICD Code: I10 Diagnosis: Secondary Procedures 12/25/16 -- EUS with FNA by Dr. Flores: There was a large hypoechoic density in the mid pancreatic body very irregular adjacent to vascular structures but no obvious regional lymphadenopathy FNA was performed it felt soft but a good core was obtained. EUS was otherwise unremarkable Brief History - From Admission 61-year-old pleasant male with past medical history of tobacco dependence who presented with intermittent abdominal pain and weight loss. Patient stated for the past few years he's been having intermittent abdominal pain that resolves on its own, but the last 2 months he's been having stabbing pain that he is described as intermittent. Patient stated that the last week and half the stabbing pain radiated to the back worsened and duration and now is continuous. He denies any nausea vomiting, constipation or diarrhea. Patient stated that he lost 35 pounds in the last 6 months. He stated that he has a good appetite and has not changed his diet. Patient has not seen a primary care physician in 20 years. He stated that his maternal grandmother has cancer but unknown. CBC/BMP: 12/26/16 0423 12/26/16 0423 Significant Findings Laboratory Tests Test 12/24/16 12/24/16 12/26/16 05:45 10:27 04:23 Red Blood Count 4.17 MIL/MM3 3.56 MIL/MM3 (4.50-5.90) (4.50-5.90) Mean Corpuscular Hemoglobin 34.1 PG 34.1 PG (27.0-34.0) (27.0-34.0) Monocytes (%) (Auto) 8.4 % (0.0-8.0) Urine Color DARK-YELLOW (YELLW/STRAW) Urine Protein 30 mg/dL (NEG-TRACE) Urine Occult Blood SMALL (NEG) Urine RBC 6 /hpf (0-3) Urine Mucus MANY /lpf (OCC) Random Glucose 119 MG/DL (74-106) Lactic Acid Level 2.1 mmol/L (0.4-2.0) Aspartate Amino Transf 9 U/L (15-37) 7 U/L (15-37) (AST/SGOT) CA 19-9 Antigen 40.1 U/ML (0.0-35.0) Hemoglobin 12.1 GM/DL (13.0-17.0) Hematocrit 35.2 % (39.0-51.0) Mean Platelet Volume 6.7 FL (7.0-11.0) Total Protein 6.0 GM/DL (6.4-8.2) Albumin 3.1 GM/DL (3.4-5.0) Imaging Last Impressions Chest CT 12/25/16 0000 Signed Impressions: Service Date/Time: December 11:51 - CONCLUSION: 1. No evidence for thoracic metastatic disease. Morro Phan MD Chest X-Ray 12/24/16537 Signed Impressions: Service Date/Time: Saturday, December 24, 2016 06:10 - CONCLUSION: Normal examination. Fernando Webber MD Abdomen/Pelvis CT 12/24/16537 Signed Impressions: Service Date/Time: Saturday, December 24, 2016 06:45 - CONCLUSION: 1. Right inguinal hernia with small bowel. Significant dilatation of the bowels not closely seen to suggest obstruction however the small bowel is seen to narrow at the level of the hernia. 2. 5 cm pancreatic mass the pancreatic body very concerning for pancreatic carcinoma. This appears to surround the splenic artery and above the common hepatic artery. 3. Generalized enlargement of the left adrenal gland are somewhat hypertrophied. The right adrenal gland is normal. 4. Distention of the cecum with stool. The cecum is directed towards the midline. This likely secondary to a normal variant of a long mesentery. Garth Mcclain MD PE at Discharge GENERAL: Well-developed well-nourished middle aged male patient in [facility]. SKIN: Warm and dry. No lesions noted. HEENT: Normocephalic. Pupils equal and round. Mucous membranes pink and moist. CARDIOVASCULAR: Regular rate and rhythm. No murmur appreciated. RESPIRATORY: No accessory muscle use. Clear to auscultation. Breath sounds equal bilaterally. GASTROINTESTINAL: Abdomen soft, non-tender, nondistended. Bowel sounds x4. MUSCULOSKELETAL: No obvious deformities. No clubbing or cyanosis. No edema. NEUROLOGICAL: Awake and alert. No focal neurological deficits. Moves upper and lower extremities spontaneously. Normal speech. PSYCHIATRIC: Appropriate mood and affect; insight and judgment normal. Pt update on day of discharge Follow up for pancreatic mass. Patient reports feeling well today. He has continued constant epigastric and mid thoracic back pain, temporarily relieved by pain medications. He is tolerating oral intake. No nausea/vomiting. He is requesting pain medications at discharge, discussed using pain medications with caution, avoid constipation. Hospital Course 61-year-old male with tobacco dependence who presented with Pancreatic mass and abdominal pain: Upon arrival, CT abd/pelvis with 5 cm pancreatic mass concerning for pancreatic carcinoma; generalized enlargement of the left adrenal gland; right inguinal hernia with small bowel without significant dilation of the bowels to suggest obstruction; stool in the cecum. CA-19-9 is mildly elevated at 41. Consulted oncologist, seen by Dr. Salazar, Recommended biopsy and chest CT, otherwise outpatient follow-up. Chest CT negative for metastatic disease. GI consulted, performed EUS with FNA biopsy on 12/25, biopsy results pending at discharge. Patient instructed to follow up with Dr. Salazar after discharge, mandatory outpatient referral order placed; patient verbalized understanding of the plan. [place] prn for pain control, given Rx at discharge. Anorexia/weight loss: Most likely secondary to cancer. See workup as above. Consulted dietitian. Added Enlive tid for added nutrition. Right inguinal hernia, seen on exam and abdominal CT: No signs of obstruction or incarceration. Patient asymptomatic. Outpatient surgery follow-up electively. Elevated blood pressure, labile. Patient stated that he checks his blood pressure frequently at home and it has been normal with BP running in 120s/70s. Suspect secondary to pain/stressor, although he may have underlying hypertension. Controlled pain. Added Norvasc 5mg daily with better control of BP. Tobacco dependence: Smoking cessation. Nicotine patch. DVT prophylaxis-Heparin Pt Condition on Discharge: Stable Discharge Disposition: Discharge Home Discharge Time: > 30 minutes Discharge Instructions DIET: Follow Instructions for: Heart Healthy Diet Activities you can perform: Regular-No Restrictions Follow up Referrals: Gastroenterology - 1 Week @ [facility] - 1 Week with Elizabeth Salazar MD PCP Follow-up - 1 Week New Medications: Amlodipine (Norvasc) 5 Mg Tab 5 MG PO DAILY Blood Pressure Management #30 TAB Hydrocodone-Acetaminophen (Hydrocodone-Acetaminophen) 5-325 mg Tab 2 TAB PO Q4H DO NOT USE THIS MEDICINE IF YOU WILL DRIVE A CAR OR USES A MACHINE , ONLY USE IT WHEN RESTING AT HOME. PRN PAIN #30 Ref 0 TAB Sennosides-Docusate Sodium (Senna Plus 8.6-50 mg) 1 Tab Tab 1 TAB PO BID Take while using pain medication. Prevent Constipation #60 TAB Kamilah Zelaya PA-C Dec 26, 2016 10:18 Kamilah Zelaya PA-C Dec 26, 2016 10:18
--- NOTE | 2016-12-26 11:35 | PD.ONC.PN ---
Subjective Subjective Remarks Afebrile overnight. Patient still having some abdominal discomfort. Glad to hear the CT chest is without mets. Eager to go home. Objective Data Date Time Temp Pulse Resp B/P Pulse Ox O2 Delivery O2 Flow Rate FiO2 12/26/16 08:16 97.8 86 18 126/90 100 12/26/16 07:10 18 12/26/16 05:12 18 12/26/16 05:03 97.3 79 20 141/96 98 12/26/16 03:00 16 12/25/16 23:47 98.4 70 18 146/75 99 12/25/16 17:20 12/25/16 17:15 63 12 160/92 98 Nasal Cannula 2 12/25/16 17:00 67 18 155/88 100 Nasal Cannula 2 12/25/16 16:57 98.1 73 18 136/79 97 Nasal Cannula 2 12/25/16 11:54 Result Diagram: 12/26/16 0423 12/26/16 0423 Laboratory Results Laboratory Tests Test 12/26/16 04:23 White Blood Count 5.8 TH/MM3 Red Blood Count 3.56 MIL/MM3 Hemoglobin 12.1 GM/DL Hematocrit 35.2 % Mean Corpuscular Volume 98.9 FL Mean Corpuscular Hemoglobin 34.1 PG Mean Corpuscular Hemoglobin 34.5 % Concent Red Cell Distribution Width 12.4 % Platelet Count 268 TH/MM3 Mean Platelet Volume 6.7 FL Sodium Level 143 MEQ/L Potassium Level 4.9 MEQ/L Chloride Level 106 MEQ/L Carbon Dioxide Level 31.6 MEQ/L Anion Gap 5 MEQ/L Blood Urea Nitrogen 13 MG/DL Creatinine 0.66 MG/DL Estimat Glomerular Filtration 123 ML/MIN Rate Random Glucose 85 MG/DL Calcium Level 8.9 MG/DL Total Bilirubin 0.3 MG/DL Aspartate Amino Transf 7 U/L (AST/SGOT) Alanine Aminotransferase 13 U/L (ALT/SGPT) Alkaline Phosphatase 81 U/L Total Protein 6.0 GM/DL Albumin 3.1 GM/DL Administered Medications Medications (Trade) Dose Ordered Sig/Jai Route PRN Reason Start Time Stop Time Status Last Admin Dose Admin Sodium Chloride (NS Flush) 2 ml BID IV FLUSH 12/24/16 09:00 12/25/16 21:13 Heparin Sodium (Porcine) (Heparin Inj) 5,000 units Q8H SQ 12/24/16 10:00 Hold 12/24/16 18:12 Senna/Docusate Sodium (Marina-Colace) 1 tab BID PO 12/24/16 09:00 12/26/16 09:19 Acetaminophen/ Hydrocodone Bitart ([place] 5-325 Mg) 1 tab Q4H PRN PO pain 1-5 12/24/16 08:30 12/26/16 00:47 Acetaminophen/ Hydrocodone Bitart ([place] 5-325 Mg) 2 tab Q4H PRN PO pain 6-10 12/24/16 08:30 12/26/16 06:10 Nicotine (Habitrol 21 Mg Patch.24 Hr) 1 patch DAILY T-DERMAL 12/24/16 09:30 12/26/16 09:18 Miscellaneous Information 1 DAILY T-DERMAL 12/25/16 09:00 12/26/16 09:18 Amlodipine Besylate (Norvasc) 5 mg DAILY PO 12/25/16 18:00 12/26/16 09:18 Objective Remarks GENERAL: Middle aged male, sitting up in bed in nad SKIN: Warm and dry. HEAD: Normocephalic. EYES: No injection or drainage. NECK: Supple, trachea midline. CARDIOVASCULAR: Regular rate and rhythm RESPIRATORY: Breath sounds equal bilaterally. No accessory muscle use. GASTROINTESTINAL: Abdomen soft, non-tender, nondistended. EXTREMITIES: No cyanosis NEUROLOGICAL: No obvious focal deficit. Awake, alert, and oriented x3. Assessment/Plan Assessment 61y/o male with pancreatic head mass. Plan 1. fs faxed to new patient referrals. 2. Patient advised to call clinic and make a follow up appointment in 1-2 weeks 3. await cytology Shantel Guzman Dec 26, 2016 11:35
== END 2016-12-26 12:12 | disposition home or self-care (01) ==
LOC: NEPE 05:22 → NEDA 07:55 → UNDODISOB 09:45 → NEPGCP 11:39
PROVIDERS: ADMIT Internal Medicine; ATTEND Internal Medicine
DX: C25.1 Malignant neoplasm of body of pancreas (principal); E86.0 Dehydration; I10 Essential (primary) hypertension; K40.90 Unilateral inguinal hernia, without obstruction or gangrene, not specified as recurrent; M54.9 Dorsalgia, unspecified; F17.210 Nicotine dependence, cigarettes, uncomplicated; R63.0 Anorexia
CPT/HCPCS: 00740; 43242; 71010; 71250; 74177; 80053; 81001; 82378; 83605; 83690; 84443; 85025; 85027; 85610; 85730; 86140; 86301; 93005; 96360; 99285; G0378; J1644; J2250; J2270; J2405; J7030; J7040; Q9967; J3010

== ENCOUNTER 2017-01-14 06:27 | Day surgery (SDC) | payer OTHER ==
[~2017-01-14] VITALS: Ht 177.8 cm; Wt 66.8 kg
[~2017-01-14 06:27] MED LIST: AMLO5 PO; HYDR-3516 PO; SENN1TAB PO
[2017-01-14 06:43] VITALS: BP 149/90; PULSE 90; RESP 18; TEMP 98.4; O2SAT 94
[2017-01-14] MEDS ORDERED: OSTETAB2 PO (06:50)
[2017-01-14] MEDS ORDERED: ONDA1TAB17 PO (06:50)
[2017-01-14] MEDS ORDERED: PROC10TA PO (06:50)
[2017-01-14] MEDS ORDERED: MULTTAB22 PO (06:50)
[2017-01-14] MEDS ORDERED: LACT10SO5 PO (06:50)
[2017-01-14] MEDS ORDERED: ceFAZolin 2 GM PREMIX 50 ML - implanted port/tunneled catheter insertion IV SCH (07:30)
[2017-01-14] MEDS ORDERED: VANCOMYCIN 1000 MG/NS 250 ML - implanted port/tunneled catheter IV SCH ×2 (07:30)
[2017-01-14] MEDS ORDERED: fentaNYL CITRATE 250 MCG/5 ML AMP ONE (08:03)
[2017-01-14] MEDS ORDERED: MIDAZOLAM HCL 5 MG/5 ML VIAL ONE (08:03)
[2017-01-14] MEDS ORDERED: LIDOCAINE 1%/EPINEPHrine 1:100,000 SOLN 20 ML VIAL ONE (08:16)
[2017-01-14 09:15] VITALS: BP 130/70; PULSE 82; RESP 18; TEMP 98.3; O2SAT 96
[2017-01-14 09:30] VITALS: BP 124/80; PULSE 90; RESP 20; O2SAT 95
[2017-01-14] MEDS ORDERED: SODIUM CHLORIDE 0.9% FLUSH 10 ML FLUSH IVF PRN (09:45)
--- NOTE | 2017-01-14 09:46 | PD.RAD ---
Post Procedure Progress Note Pre Procedure Diagnosis: (1) Pancreatic mass Post Procedure Diagnosis: (1) Pancreatic mass Procedure Date: Jan 14, 2017 Supervising Radiologist: Morro Phan Proceduralist/Assist: Kamilah Garza, RT(R), Georgia Pinto RT(R)() Anesthesia: Conscious Sedation Plan of Activity Patient to Unit: ROPU Patient Condition: Good Additional Comments: Right IJ port placed with tip at ACJ. See PACS Report for procedural detail/treatment Morro Phan MD Jan 14, 2017 09:46
--- NOTE | 2017-01-14 09:48 | RADRPT ---
EXAM DATE/TIME: 01/14/2017 08:09 [facility] COMPARISON: No previous studies available for comparison. INDICATIONS : Patient with history of a pancreatic mass in need of port placement. MEDICAL HISTORY : 1.Tobacco use 42 years SURGICAL HISTORY : 1.Tonsillectomy ENCOUNTER: Initial ACUITY: 1 month PAIN SCORE: 0/10 FLUORO TIME: 0.1 minutes IMAGE SERIES: SEDATION TIME: 45 minutes ACCESS: Right internal jugular vein SEDATION: 1.) 3 mg midazolam (Versed) IV 2.) 150 mcg fentanyl (Sublimaze) IV Prophylactic antibiotics were administered with appropriate pre-procedure timing. Vancomycin within 2 hours of procedure, Ancef (or alternative) within 1 hour of procedure. DEVICE: 1. 8 [place] single lumen Angiodynamic Power Port PROCEDURE : 1. Continuous pulse oximetry and EKG monitoring. 2. Intravenous conscious sedation. 3. Ultrasound guidance for venous access. 4. Fluoroscopic guided implantable central venous port placement. The patient was placed supine. The neck was prepped in sterile fashion. Full sterile technique was u sed, including cap, mask, sterile gloves and gown, and a large sterile sheet. Hand hygiene and 2% ch lorhexidine Betadine was utilized per protocol for cutaneous antisepsis with appropriate dry time for site. The skin and subcutaneous tissues were infiltrated with local anesthetic solution. Under direct ultrasound guidance, central venous access was accomplished in the targeted vessel. The ultrasound images depicting access guidance were stored and saved to PACS for permanent record. A s ubcutaneous pocket was created using blunt dissection. The port was introduced to the pocket. The c atheter tubing was fed through a subcutaneous tunnel to the venotomy site. The catheter tubing was c ut to a suitable length and then was introduced through a valved Peel-Away sheath and positioned with catheter tubing tip at the cavo-atrial junction level. The pocket incision was closed with subcutic ular Vicryl suture. Steri-Strips were applied. The port was flushed and locked with heparin solutio n per protocol. Sterile dressing was applied to the site. The patient tolerated the procedure well. Conscious sedation was performed with the prescribed dosages and duration as above in the presence of an independent trained radiology nurse to assist in the monitoring of the patient. EKG and oximetry remained stable throughout the procedure. The patient tolerated the procedure well and there were no complications. The patient was sent to post anesthesia recovery in stable condition. CONCLUSION: Uncomplicated ultrasound and fluoroscopic guided implanted central venous port catheter placement as described in detail above. An 8 [place] Power port was placed. Morro Phan MD on January 14, 2017 at 9:45 Board Certified Radiologist. This report was verified electronically.
[2017-01-14 10:00] VITALS: BP 123/71; PULSE 81; RESP 20; O2SAT 92
[2017-01-14 10:30] VITALS: BP 116/67; PULSE 80; RESP 18; O2SAT 94
[2017-01-14 11:00] VITALS: BP 114/69; PULSE 86; RESP 20; O2SAT 94
== END 2017-01-14 12:29 | disposition home or self-care (01) ==
LOC: HROP 06:27 → HRIP 06:28 → HROP 12:29
PROVIDERS: ATTEND Internal Medicine Hematology & Oncology
DX: C25.9 Malignant neoplasm of pancreas, unspecified (principal); I10 Essential (primary) hypertension; F17.200 Nicotine dependence, unspecified, uncomplicated
CPT/HCPCS: 36561; 76937; 77001; 99152; 99153; C1788; J0690; J1642; J2250; J3010; J3370; J7050

== ENCOUNTER → 2017-04-06 | Day surgery (SDC) | payer OTHER ==
[~2017-04-06] MED LIST changes: +BUPIVACAINE/EPINEPHRINE 0.25% 50 ML VIAL INFIL ONE; -HYDR-3516 PO; +KETOROLAC TROMETHAMINE 30 MG/ML (IVP) VIAL IV PUSH ONE; +LACT10SO5 PO; +LACTATED RINGER'S 1000 ML INJ 1,000 ML IV ONE; +LACTATED RINGER'S 1000 ML INJ 1,000 ML ONE; +MEPERIDINE HCL 50 MG/ML VIAL ONE; +METH5TAB PO; +MIDAZOLAM HCL 2 MG/2 ML VIAL ONE; +MULTTAB22 PO; +ONDANSETRON HCL 4 MG/2 ML VIAL IV PUSH ONE; +OSTETAB2 PO; +OXYC-395 PO; +PROC10TA PO; +PROPOFOL 200 MG/20 ML AMP IV ONE; +ROCURONIUM INJ 50 MG/5 ML SYRINGE IV PUSH ONE; -SENN1TAB PO; +ceFAZolin 2 GM PREMIX 50 ML ONE
--- NOTE | 2017-04-07 12:03 | TN ---
cc: SHEREEGAYLAW DATE OF SURGERY 04/06/2017 PREOPERATIVE DIAGNOSES 1. Pancreatic cancer. 2. Acutely incarcerated right inguinal hernia. POSTOPERATIVE DIAGNOSES 1. Pancreatic cancer. 2. Acutely incarcerated right inguinal hernia. PROCEDURE 1. Staging laparoscopy. 2. Laparoscopic right inguinal hernia repair with mesh (TEP). ANESTHESIA General and local anesthetic. ATTENDING SURGEON Chelo Farris MD ICT SALES REPRESENTATIVE FABRICIO Luo FINDINGS 1. A direct inguinal hernia that was able to be reduced after and induction of anesthesia on the right. 2. No evidence of metastasis or carcinomatosis on staging laparoscopy. INDICATIONS FOR PROCEDURE The patient is a 62-year-old male who was referred by Dr. Elizabeth Salazar for incarcerated right inguinal hernia. The patient was seen, evaluated in the office and his hernia was able to be reduced in the office. Discussion with the patient about the risk of incarceration due to his acutely incarcerated hernia, I did recommend repair even though the patient does have a history of pancreatic adenocarcinoma and is currently on chemotherapy. The risk of incarceration was high for this patient and elective urgent repair was discussed and recommended. He agreed to undergo the procedure. The risks, benefits and alternatives to hernia with mesh also discussed and the patient agreed. The patient also consented to diagnostic staging laparoscopy at the request Dr. Salazar. PROCEDURE DETAILS The patient was taken to the operating room, placed in the supine position, placed under general anesthesia. The patient's abdomen was shaved, prepped and draped in sterile fashion. Time-out was performed. We used local anesthetic at all port sites. We also did a right inguinal field block using Marcaine anesthetic. We made a 2 cm horizontal incision to the right of the umbilicus and dissected down to the subcutaneous tissue and opened the anterior rectus sheath. We spread the rectus muscles laterally and gained access to the preperitoneal space anterior to the posterior rectus sheath. We used a dissector balloon to dissect the space without difficulty. We placed a 10-mm trocar and insufflated the preperitoneal space. We placed two 5 mm trocars under visualization of the laparoscope. We then were able to begin our dissection. We opened up the dissection plane further and clearly there was a direct inguinal hernia. We reduced this easily and reduced the sac completely down into the preperitoneal space with leaving the hernia defect well visualized proximally 2.5 cm x 2.5 cm in the direct space. The cord structures and dissected free. There was a small cord lipoma but there was no indirect hernia. At this point in time we turned our attention towards repair of the hernia. We placed a 4 cm x 6 cm Atrium lightweight polypropylene mesh in the preperitoneal space without difficulty. This laid flat in a taco shell type technique with the center of the mesh over the defect. We used the ProTack to place three clips along the anterior border to hold this in place. At this point in time we turned towards completion and removed the air from preperitoneal space and ensured our mesh laid in good position. We had excellent repair with excellent spontaneous hemostasis. At this point in time we performed the staging laparoscopy. We were able to open the posterior rectus sheath and placed a 10-mm trocar into the peritoneum under direct visualization. We insufflated the peritoneum. We placed a second 5-mm port below the umbilicus and one of the previous port sites which is outside of the area of our mesh. We then were able to use a grasper and the 10 mm camera to survey the abdomen. There was no evidence of any metastasis. The primary tumor was visualized in the body of the pancreas and this was not invading through the retroperitoneum. This seemed to cause no obstruction or problems. The visualized portions of the colon and mesentery and small bowel and stomach and parietal peritoneum were all clear of any metastatic disease. At this point in time we turned towards completion and removed ports under visualization with the laparoscope and expressed pneumoperitoneum. We closed the posterior rectus sheath and the anterior rectus sheath with 2-0 Vicryl suture. We closed the skin with 4-0 Monocryl and Dermabond. The patient had a scrotal support placed, an ice pack placed and was tranported to the postanesthesia care unit in stable condition. The patient tolerated the procedure well. No apparent complications. All counts were correct. I was present and scrubbed for the entire procedure. Joshua Farris MD AWG/KK /3:14 PM /11:55 AM [facility] I[facility]ASS[facility]T HOSPITALGabriel
== END | disposition home or self-care (01) ==
LOC: ESDC 11:56
PROVIDERS: ATTEND Surgery
DX: K40.30 Unilateral inguinal hernia, with obstruction, without gangrene, not specified as recurrent (principal); C25.9 Malignant neoplasm of pancreas, unspecified
CPT/HCPCS: 00840; 49650; C1727; C1781; J0690; J1885; J2175; J2250; J2405; J3010; J7120

== ENCOUNTER 2017-04-13 09:49 | Day surgery (SDC) | payer OTHER ==
[~2017-04-13 09:49] MED LIST changes: -BUPIVACAINE/EPINEPHRINE 0.25% 50 ML VIAL INFIL ONE; -KETOROLAC TROMETHAMINE 30 MG/ML (IVP) VIAL IV PUSH ONE; -LACTATED RINGER'S 1000 ML INJ 1,000 ML IV ONE; -LACTATED RINGER'S 1000 ML INJ 1,000 ML ONE; -MEPERIDINE HCL 50 MG/ML VIAL ONE; -MIDAZOLAM HCL 2 MG/2 ML VIAL ONE; -ONDANSETRON HCL 4 MG/2 ML VIAL IV PUSH ONE; -PROPOFOL 200 MG/20 ML AMP IV ONE; -ROCURONIUM INJ 50 MG/5 ML SYRINGE IV PUSH ONE; -ceFAZolin 2 GM PREMIX 50 ML ONE
--- NOTE | 2017-04-13 11:08 | RADRPT ---
EXAM DATE/TIME: 04/13/2017 10:28 [facility] COMPARISON: CT ABDOMEN & PELVIS W CONTRAST, December 24, 2016, 6:45. EXTERNAL COMPARISON : [facility], PET CT Tumor, March 17, 2017and 01/16/17. INDICATIONS : Evaluate liver mass and possible liver biopsy. MEDICAL HISTORY : Carcinoma, pancreas. Hypertension. Hernia, hiatal. SURGICAL HISTORY : Tonsillectomy. Hiatel hernia repair. ENCOUNTER: Initial ACUITY: 3 months PAIN SCORE: 2/10 LOCATION: Right upper quadrant AREA EVALUATED: Right liver FINDINGS: Limited ultrasound examination of the liver was performed to evaluate for biopsy of a mass in the rig ht lobe of the liver noted on PET/CT scan. Ultrasound exam does not demonstrate a focal hepatic mass or intrahepatic ductal dilatation. Therefore, procedure was not performed. CONCLUSION: 1. Right hepatic mass noted on PET/CT exam is not demonstrated with ultrasound examination and there fore biopsy was not performed. Consider Eovist hepatic mass protocol MRI examination if there is cont inued concern regarding a focal hepatic mass for better evaluation. Findings were personally discussed with Dr. Salazar at the time of this dictation. Morro Phan MD on April 13, 2017 at 11:01 Board Certified Radiologist. This report was verified electronically.
== END 2017-04-13 10:52 | disposition home or self-care (01) ==
LOC: HRAD 09:49 → HRIP 10:23 → HRAD 10:52
PROVIDERS: ATTEND Internal Medicine Hematology & Oncology
DX: R16.0 Hepatomegaly, not elsewhere classified (principal); C25.9 Malignant neoplasm of pancreas, unspecified; I10 Essential (primary) hypertension; K44.9 Diaphragmatic hernia without obstruction or gangrene
CPT/HCPCS: 76705

== ENCOUNTER 2017-10-07 15:02 | Inpatient (IN) | payer OTHER ==
[2017-10-07] VITALS (9 sets, daily range): BP systolic 104–124; BP diastolic 70–85; PULSE 93–109; RESP 18–21; TEMP 97.7–98; O2SAT 95–99
[~2017-10-07] VITALS: Ht 177.8 cm; Wt 55.7 kg
[~2017-10-07 15:02] MED LIST changes: -AMLO5 PO
[2017-10-07] MEDS ORDERED: SODIUM CHLOR 0.9% 1000 ML INJ 1,000 ML IV SCH ×2 (16:25→22:00)
[2017-10-07] MEDS ORDERED: ONDANSETRON HCL 4 MG/2 ML VIAL IVP ONE (16:30)
[2017-10-07] MEDS ORDERED: MORPHINE SULFATE 4 MG/ML INJ IV PUSH ONE (16:30)
[2017-10-07] MEDS ORDERED: PIPERACIL-TAZO 3.375 GM PREMIX 50 ML IV ONE (16:30)
[2017-10-07] MEDS ORDERED: SODIUM CHLORIDE 0.9% FLUSH 10 ML FLUSH IV FLUSH PRN (16:30)
--- NOTE | 2017-10-07 16:37 | PD ---
HPI Chief Complaint: Abdominal Pain Time Seen by Provider: 16:07 Travel History International Travel<30 days: No Contact w/Intl Traveler<30days: No Traveled to known affect area: No History of Present Illness HPI The patient is a 62-year-old male who presents to the emergency department for abdominal pain. The patient developed abdominal pain last night approximately 9 PM. The abdominal pain was generalized, continues to be generalized, constant, moderate to severe, and worse with inspiration. He denies any nausea or vomiting. The patient's last meal was at 7 AM. The patient had a CT of the abdomen and pelvis performed an outpatient basis today at [facility] which revealed free air, possibly from perforated viscus. The patient does have a history of pancreatic cancer with metastasis and is followed by his oncologist, Dr. Salazar. The patient last had chemotherapy 2 weeks ago and radiation therapy 3 weeks ago. He denies any fever , chills, or sweats. Symptoms are moderate to severe. There are no current alleviating or exacerbating factors. The patient does not have a primary physician. PFSH Past Medical History Blood Disorders: No Cancer: Yes (pancreatic) Cardiovascular Problems: No Chemotherapy: Yes Diabetes: No Diminished Hearing: No Endocrine: No Genitourinary: No Immune Disorder: No Musculoskeletal: No Neurologic: No Psychiatric: No Reproductive: No Respiratory: No Immunizations Current: No Radiation Therapy: No Thyroid Disease: No Influenza Vaccination: No Past Surgical History Tonsillectomy: Yes Other Surgery: Yes (tonsils) Social History Alcohol Use: No Tobacco Use: No Substance Use: No Allergies-Medications (Allergen,Severity, Reaction): Coded Allergies: No Known Allergies (Unverified Allergy, Unknown, 10/07/17) temazepam (Verified Allergy, Unknown, 10/07/17) Reported Meds & Prescriptions Reported Meds & Active Scripts Active Reported Multi For Him (Multiple Vitamins W/ Minerals) 1 Tab Tab 1 Tab PO DAILY Osteo Bi-Flex Advanced Tr (Misc Natural Products) 1 Tab Tab 1 Tab PO DAILY Prochlorperazine Maleate 10 Mg Tab 10 Mg PO Q6H PRN Review of Systems Except as stated in HPI: all other systems reviewed are Neg General / Constitutional: No: Fever Cardiovascular: No: Chest Pain or Discomfort Respiratory: Positive: Shortness of Breath Gastrointestinal: Positive: Abdominal Pain, No: Nausea, Vomiting, Diarrhea Musculoskeletal: No: Weakness Neurologic: No: Weakness Hematologic/Lymphatic: Positive: Other (history of pancreatic cancer with metastasis) Physical Exam Narrative GENERAL: Awake, alert, 62-year-old male appears his stated age and appears in moderate discomfort. SKIN: Focused skin assessment warm/dry. HEAD: Atraumatic. Normocephalic. EYES: No injection or drainage. ENT: No nasal bleeding or discharge. Slightly dry mucous membranes. NECK: Trachea midline. No JVD. CARDIOVASCULAR: Regular rate and rhythm. No murmur appreciated. Heart rate in the 90s. Port in place right chest wall. RESPIRATORY: No accessory muscle use. Diminished breath sounds in the bases bilaterally. GASTROINTESTINAL: Abdomen diffusely tender. Mild guarding. MUSCULOSKELETAL: No obvious deformities. No clubbing. No cyanosis. No edema. NEUROLOGICAL: Awake and alert. No obvious cranial nerve deficits. Motor grossly within normal limits. Normal speech. PSYCHIATRIC: Appropriate mood and affect; insight and judgment normal. Data Data Last Documented VS Vital Signs Date Time Temp Pulse Resp B/P (MAP) Pulse Ox O2 Delivery O2 Flow Rate FiO2 10/07/17 15:19 98.0 99 20 104/70 (81) 96 Orders Orders Urinalysis - C+S If Indicated (10/07/17 15:22) Complete Blood Count With Diff (10/07/17 16:25) Comprehensive Metabolic Panel (10/07/17 16:25) Lipase (10/07/17 16:25) Lactic Acid (10/07/17 16:25) Prothrombin Time / Inr (Pt) (10/07/17 16:25) Act Partial Throm Time (Ptt) (10/07/17 16:25) Iv Access Insert/Monitor (10/07/17 16:25) Ecg Monitoring (10/07/17 16:25) Oximetry (10/07/17 16:25) NPO (10/07/17 16:25) Morphine Inj (Morphine Inj) (10/07/17 16:30) Ondansetron Inj (Zofran Inj) (10/07/17 16:30) Sodium Chlor 0.9% 1000 Ml Inj (Ns 1000 M (10/07/17 16:25) Sodium Chloride 0.9% Flush (Ns Flush) (10/07/17 16:30) Electrocardiogram (10/07/17 16:25) Piperacil-Tazo 3.375 Gm Premix (Zosyn 3. (10/07/17 16:30) Ng Gastric Tube Insert/Monitor (10/07/17 16:25) Consult General Surgery (10/07/17 ) Fluconazole 400 Mg Premix Bag (Diflucan (10/07/17 17:00) (Hub Use Only)Inp Phy Cons/Ref (10/07/17 ) Consult Camila Nfs (10/07/17 ) Admit Order (Ed Use Only) (10/07/17 16:46) MDM Medical Decision Making Medical Screen Exam Complete: Yes Emergency Medical Condition: Yes Medical Record Reviewed: Yes Interpretation(s) CT of the abdomen and pelvis reveals free intraperitoneal air. Site of perforation is not identified. Upper abdominal site is suspected. New metastatic disease to the liver. Enlarging peripancreatic mass. CBC was noted, hemoglobin was 10.3, platelets 111. Creatinine was elevated at 1.8, CMP was noted, alkaline phosphatase was elevated Lactic acid 2.4 Differential Diagnosis Differential diagnosis includes perforated viscus, free air, gastric ulcer, peptic ulcer disease, perforated duodenum, perforated diverticulum, sepsis, dehydration. Narrative Course The patient's port was accessed, labs were drawn and sent, and the patient was placed on cardiac telemetry monitoring and continuous pulse oximetry monitoring. The patient was administered morphine, Zofran, Zosyn, and IV fluids. I discussed the CT findings with the radiologist, Dr. Daniel Barrientos, who suspects it may be from the duodenal area with his history of pancreatic cancer. I discussed the patient with the patient's general surgeon, Dr. Farris, who fixed the inguinal hernia in 2017. I then discussed the patient with their nurse practitioner who states Dr. Hawley was on-call. A call was placed into the on-call cosmetic counselor for admission to the intensive surgical care unit. I did have a discussion with the patient at bedside regarding palliative care versus possible surgery. The patient would prefer surgery if this would in fact prolong his life and improve his symptoms. A call was also placed to the patient's oncologist, Dr. Salazar, at 4:40 PM. The patient will be kept n.p.o. and resuscitated with IV fluids. I spoke with Dr. Hawley, the general surgeon, once again at 4:48 PM. He does not believe the patient would be a surgical candidate, however, he did discuss the patient with Dr. Daniel Barrientos, interventional radiologist, patient may be a candidate for a drain to be placed. However, he would be a poor surgical candidate, therefore, no stat surgery is warranted after discussion. The patient will be placed in the intensive surgical care unit until interventional radiology evaluate the patient for possible drain placement. I also spoke with Dr. Belcher at 4:50 PM regarding the patient's current pancytopenia. The patient will be transfused PRBCs, 2 now, to to be held in case further transfusion indicated. The patient may need consultation with palliative care and/or hospice in the intensive surgical care unit if he continues to deteriorate. The patient's hemoglobin of 5.6 was from blood work on the , the patient states he had 2 units of blood yesterday, therefore, we will hold blood products until his CBC is resulted today. However, he still may need 2 units for his shortness of breath and resuscitation. The patient's hemoglobin came back at 10.3, therefore, PRBCs were canceled. Critical Care Narrative Aggregate critical care time was 45 minutes. Time to perform other separately billable procedures was not included in the critical care time. My time did not include minutes spent treating any other patients simultaneously or on activities that did not directly contribute to the patient's treatment. The services I provided to this patient were to treat and/or prevent clinically significant deterioration that could result in: Sepsis, shock, . I provided critical care services requiring my management, as noted below: Chart data review, documentation time, medication orders and management, vital sign assessments/reviewing monitor data, ordering and reviewing lab tests, ordering and interpreting/reviewing x-rays and diagnostic studies, care of the patient and discussion of the patient with the admitting physicians. Physician Communication Physician Communication A call was placed to the on-call cosmetic counselor at 4:30 PM. I discussed the patient with Dr. Mackay who agrees with admission. Diagnosis Primary Impression: Intra-abdominal free air of unknown etiology Admitting Information Admitting Physician Requests: Admit Condition: Serious Bin Rincon MD Oct 07, 2017 16:37
[2017-10-07] MEDS ORDERED: diphenhydrAMINE HCL 50 MG/ML VIAL IV PUSH PRN (17:00)
[2017-10-07] MEDS ORDERED: ACETAMINOPHEN 325 MG TAB PO PRN (17:00)
[2017-10-07] MEDS ORDERED: SODIUM CHLOR 0.9% 250 ML INJ 250 ML IV ONE (17:00)
[2017-10-07] MEDS ORDERED: FLUCONAZOLE 400 MG PREMIX BAG 200 ML IV SCH (17:00)
[2017-10-07 17:10] LABS: AUTOMATED NEUTROPHIL # 1.5 TH/MM3 (1.8-7.7); EOSINOPHIL % 0.1 % (0.0-4.0); HEMATOCRIT 30.1 % (39.0-51.0); HEMOGLOBIN 10.3 GM/DL (13.0-17.0); LYMPH % 7.7 % (9.0-44.0); LYMPHOCYTE # 0.1 TH/MM3 (1.0-4.8); MEAN CELL VOLUME 99.2 FL (80.0-100.0); MEAN CORPUSCULAR HEMOGLOBIN 34.1 PG (27.0-34.0); MEAN CORPUSCULAR HGB CONC 34.3 % (32.0-36.0); MEAN PLATELET VOLUME 6.9 FL (7.0-11.0); MONO % 6.3 % (0.0-8.0); MONOCYTE # 0.1 TH/MM3 (0-0.9); NEUT % 84.9 % (16.0-70.0); PLATELET COUNT 111 TH/MM3 (150-450); RED BLOOD COUNT 3.03 MIL/MM3 (4.50-5.90); WHITE BLOOD COUNT 1.7 TH/MM3 (4.0-11.0)
[2017-10-07 17:17] LABS: CHLORIDE 96 MEQ/L (98-107); SODIUM (NA) 134 MEQ/L (136-145)
[2017-10-07 17:21] LABS: ALBUMIN 2.5 GM/DL (3.4-5.0); BICARBONATE 27.9 MEQ/L (21.0-32.0); BLOOD UREA NITROGEN 16 MG/DL (7-18); GLUCOSE,RANDOM 143 MG/DL (74-106)
[2017-10-07 17:23] LABS: ALT (GPT) 26 U/L (12-78); AST (GOT) 11 U/L (15-37)
[2017-10-07 17:24] LABS: GLOMERULAR FILTRATION RATE 38 ML/MIN (>89)
[2017-10-07 17:25] LABS: TOTAL BILIRUBIN ADULT 0.4 MG/DL (0.2-1.0); TOTAL PROTEIN 5.9 GM/DL (6.4-8.2)
[2017-10-07 17:26] LABS: ALKALINE PHOSPHATASE 159 U/L (45-117)
[2017-10-07] MEDS ORDERED: fentaNYL CITRATE 250 MCG/5 ML AMP IV PUSH ONE ×2 (17:30→20:30)
[2017-10-07] MEDS: PIPERACIL-TAZO 3.375 GM PREMIX 50 ML IV SCH (18:00)
--- NOTE | 2017-10-07 18:26 | PD.CONS ---
cc: Jordan Hawley MD HPI Service General Surgery Consult Requested By Dr. Rincon Reason for Consult Free intraperitoneal air Primary Care Physician No Primary Care Physician History of Present Illness This is a 62 year old male with a past medical history of pancreatic cancer followed by Dr. El and Dr. Farris. The patient has been receiving chemotherapy and radiation, his last doses at 2 weeks and 3 weeks respectively. The patient developed severe onset of abdominal pain about 9PM last night that worsens with deep breaths. He reports nausea that is chronic without nausea. He reports he has steadily been loosing quite a bit of weight over the last few months. The patient had an outpatient CT abdomen/pelvis to evaluate the pancreatic cancer. This scan revealed intraperitoneal free air and unfortunately new metastatic disease to the liver not seen on prior CT. A General Surgery consultation has been requested. Review of Systems Constitutional: COMPLAINS OF: Fatigue, Weight loss, Change in appetite Endocrine: DENIES: Polydipsia, Polyuria, Polyphagia Eyes: DENIES: Diplopia Ears, nose, mouth, throat: DENIES: Hearing loss Respiratory: DENIES: Cough, Sputum production Cardiovascular: DENIES: Chest pain, Dyspnea on Exertion Gastrointestinal: COMPLAINS OF: Abdominal pain, Nausea, DENIES: Vomiting Genitourinary: DENIES: Urinary frequency Musculoskeletal: DENIES: Joint pain Integumentary: DENIES: Abnormal pigmentation Hematologic/lymphatic: DENIES: Bruising Immunologic/allergic: DENIES: Eczema Neurologic: DENIES: Abnormal gait, Headache Psychiatric: DENIES: Confusion, Mood changes, Depression Past Family Social History Past Medical History Pancreatic cancer now with metastatic disease to the liver on imaging Past Surgical History RIGHT inguinal hernia repair Reported Medications Prochlorperazine Multi vitamin Osteo Bi-Flex Allergies: Coded Allergies: No Known Allergies (Unverified Allergy, Unknown, 10/07/17) temazepam (Verified Allergy, Unknown, 10/07/17) Active Ordered Medications Current Medications Medications (Trade) Dose Ordered Sig/Jai Route Start Time Stop Time Status Last Admin (NS Flush) 2 ml UNSCH PRN IV FLUSH 10/07/17 16:30 Fluconazole/ Sodium Chloride 200 ml @ 100 mls/hr Q24H IV 10/07/17 17:00 10/07/17 17:53 Sodium Chloride 250 ml @ 15 mls/hr ONCE ONCE IV 10/07/17 17:00 10/08/17 09:39 (Benadryl Inj) 25 mg UNSCH X1 PRN IV PUSH 10/07/17 17:00 10/10/17 16:59 (Tylenol) 650 mg UNSCH X1 PRN PO 10/07/17 17:00 10/10/17 16:59 Piperacillin Sod/ Tazobactam Sod 50 ml @ 100 mls/hr Q8H IV 10/07/17 18:00 Family History Noncontributory Social History Denies tobacco use Denies ETOH use Denies illicit drug use Lives at home; has a loyal neighbor of about 30 years named Sid Physical Exam Vital Signs Vital Signs Date Time Temp Pulse Resp B/P (MAP) Pulse Ox O2 Delivery O2 Flow Rate FiO2 10/07/17 17:13 20 96 Room Air 10/07/17 17:08 98 18 107/78 (88) 96 Room Air 10/07/17 15:19 98.0 99 20 104/70 (81) 96 Physical Exam GENERAL: Pleasant, cachetic ill appearing male resting in bed in mild distress secondary to abdominal pain. SKIN: Warm and dry. RIGHT subclavian port; accessed. HEAD: Atraumatic. Normocephalic. EYES: Pupils equal and round. No scleral icterus. No injection or drainage. ENT: No nasal bleeding or discharge. Mucous membranes dry. NECK: Trachea midline. CARDIOVASCULAR: Regular rate and rhythm. RESPIRATORY: No accessory muscle use. Clear to auscultation. Breath sounds equal bilaterally. GASTROINTESTINAL: Abdomen thin, non distended; tender throughout; minimal guarding with palpation MUSCULOSKELETAL: Extremities without clubbing, cyanosis, or edema. No obvious deformities. NEUROLOGICAL: Awake and alert. No obvious cranial nerve deficits. Motor grossly within normal limits. Five out of 5 muscle strength in the arms and legs. Normal speech. PSYCHIATRIC: Appropriate mood and affect; insight and judgment normal. Laboratory Laboratory Tests Test 10/07/17 16:55 White Blood Count 1.7 Red Blood Count 3.03 Hemoglobin 10.3 Hematocrit 30.1 Mean Corpuscular Volume 99.2 Mean Corpuscular Hemoglobin 34.1 Mean Corpuscular Hemoglobin Concent 34.3 Red Cell Distribution Width 20.0 Platelet Count 111 Mean Platelet Volume 6.9 Neutrophils (%) (Auto) 84.9 Lymphocytes (%) (Auto) 7.7 Monocytes (%) (Auto) 6.3 Eosinophils (%) (Auto) 0.1 Basophils (%) (Auto) 1.0 Neutrophils # (Auto) 1.5 Lymphocytes # (Auto) 0.1 Monocytes # (Auto) 0.1 Eosinophils # (Auto) 0.0 Basophils # (Auto) 0.0 CBC Comment AUTO DIFF Prothrombin Time 10.0 Prothromb Time International Ratio 1.0 Activated Partial Thromboplast Time 23.5 Blood Urea Nitrogen 16 Creatinine 1.80 Random Glucose 143 Total Protein 5.9 Albumin 2.5 Calcium Level 8.0 Alkaline Phosphatase 159 Aspartate Amino Transf (AST/SGOT) 11 Alanine Aminotransferase (ALT/SGPT) 26 Total Bilirubin 0.4 Sodium Level 134 Potassium Level 3.7 Chloride Level 96 Carbon Dioxide Level 27.9 Anion Gap 10 Estimat Glomerular Filtration Rate 38 Lactic Acid Level 2.4 Lipase 65 Result Diagram: 10/07/17 1655 10/07/17 1655 Assessment and Plan Assessment and Plan 62 year old male with known pancreatic cancer received treatment with chemotherapy and radiation; outpatient CT abd/pelvis with free intraperitoneal air -Nonoperative treatment at this time; patient is not a surgical candidate -NPO -Radiology to review--- may be able to place drain -Zosyn and Diflucan -PRBC transfusion tonight -New imaging from outpatient scan now shows metastatic disease to the liver -Will ask Palliative Care to visit with patient -Thank you for this consult; We will continue to follow Discussed Condition With Dr. Hawley Mr. Martina Lau (patient's neighbor) Attending Statement I discussed this patient's care with him, Dr Salazar, Dr Poli Barrientos, and Rosaura REGALADO. He is HD stable, c/o abdominal pain, relieved by pain meds for 3-4 hours at a time. I reviewed his CT scan and have discussed the findings with the patient this morning. I do not believe he is a surgical candidate, due to his pancytopenia and stage 4 pancreatic cancer. His best option at this time is supportive care with antibiotics, possible CT guided drainage, and palliative pain control. He appears to understand and agree. He recently had [address] treatments [address] Reyna. His PE this morning demonstrates a firm mildly tender abdomen, diffusely tender to palpation and percussion. He has a recurrent RIH, partially reducible. His incisions from the laparoscopic hernia repair are healing well. Plan is consideration fo drainage, palliative care evaluation and assistance, and avoiding surgical intervention. The exam, history, and the medical decision-making described in the above note were completed with the assistance of the mid-level provider. I reviewed and agree with the findings presented. I attest that I had a [id number] encounter with the patient on the same day, and personally performed and documented my assessment and findings in the medical record. Rosaura Klein/Buffing Machine Operator [employer] FABRICIO Oct 07, 2017 18:26 Jordan Hawley MD Oct 08, 2017 07:22
[2017-10-07 19:06] LABS: BANDS 12 % (0-6); LYMPHOCYTES 12 % (9-44); METAMYELOCYTES 3 % (0-1); MONOCYTES 9 % (0-8); NEUTROPHIL # MANUAL DIFF 1.3 TH/MM3 (1.8-7.7); POLYS (SEG NEUTROPHILS) 64 % (16-70)
[2017-10-08] VITALS (15 sets, daily range): BP systolic 84–113; BP diastolic 62–74; PULSE 102–114; RESP 10–17; TEMP 97.3–97.9; O2SAT 92–95
[2017-10-08] MEDS ORDERED: VANCOMYCIN INJ 1,100 MG in SODIUM CHLOR 0.9% 250 ML INJ 250 ML IV ONE (00:30)
[2017-10-08] MEDS ORDERED: HYDROmorphone HCL PF 2 MG/ML VIAL IV ONE (00:30)
[2017-10-08] MEDS ORDERED: Vancomycin Consult Pharmacy 1 EA OTHER SCH (00:30)
--- NOTE | 2017-10-08 00:37 | HHI.HP ---
HPI Service Critical Care Medicine Primary Care Physician No Primary Care Physician Admission Diagnosis Intraperitoneal air, history of pancreatic cancer with metastasis Diagnosis: Chief Complaint: abdominal pain Travel History International Travel<30 Days: No Contact w/Intl Traveler <30 Da: No Traveled to Known Affected Are: No History of Present Illness This is a 62-year-old male with a past medical history of metastatic pancreatic cancer who is followed by Dr. Salazar and Dr. Diallo. Patient is undergoing chemoradiation and his last dose chemotherapy was 2 weeks ago. Last night, the patient developed new onset severe abdominal pain around 2100 on . He is in severe distress in my evaluation and that distress limits my obtaining a complete history. He does describe the pain as stabbing and generalized throughout his entire abdomen. He does not want to move in bed and wants to lie perfectly still. He endorses fever and chills. Endorses nausea, vomiting. Denies diarrhea or constipation. He had a CAT scan done which demonstrated free intraperitoneal air as well as new and further metastatic disease in his liver which is new relative to prior imaging. General surgery evaluated the patient and felt that he was not a good surgical candidate given his severe cachexia as well as end-stage pancreatic cancer. Interventional radiology is considering placing intraperitoneal drain for symptom and possible source control. The remainder the review of systems is negative unless otherwise stated above. Review of Systems ROS Limitations: Clinical Condition Constitutional: COMPLAINS OF: Fever, Weight loss, Chills, DENIES: Diaphoretic episodes, Fatigue, Weight gain, Dizziness Respiratory: COMPLAINS OF: Shortness of breath, DENIES: Cough, Wheezing, Sputum production Cardiovascular: DENIES: Chest pain, Palpitations, Dyspnea on Exertion, Lower Extremity Edema Gastrointestinal: COMPLAINS OF: Abdominal pain, Nausea, Vomiting, Anorexia, DENIES: Black stools, Bloody stools, Constipation, Diarrhea, Difficulty Swallowing Neurologic: DENIES: Headache, Localized weakness Past Family Social History Allergies: Coded Allergies: No Known Allergies (Unverified Allergy, Unknown, 10/07/17) temazepam (Verified Allergy, Unknown, 10/07/17) Past Medical History Pancreatic cancer now with metastatic disease to the liver on imaging Past Surgical History inguinal hernia repair, right side Reported Medications Multi For Him (Multiple Vitamins W/ Minerals) 1 Tab Tab 1 Tab PO DAILY Osteo Bi-Flex Advanced Tr (Misc Natural Products) 1 Tab Tab 1 Tab PO DAILY Prochlorperazine Maleate 10 Mg Tab 10 Mg PO Q6H PRN Active Ordered Medications See MAR Family History Reviewed and found to be noncontributory to his acute illness Social History Denies tobacco, EtOH, drugs abuse. Physical Exam Vital Signs Vital Signs Date Time Temp Pulse Resp B/P (MAP) Pulse Ox O2 Delivery O2 Flow Rate FiO2 10/07/17 22:00 106 10/07/17 21:48 97.7 109 20 117/74 (88) 99 10/07/17 21:30 98 18 117/82 (94) 97 10/07/17 20:11 93 124/85 (98) 97 10/07/17 18:51 98 18 124/85 (98) 96 Room Air 10/07/17 18:49 18 10/07/17 17:30 18 10/07/17 17:13 20 96 Room Air 10/07/17 17:08 98 18 107/78 (88) 96 Room Air 10/07/17 15:19 98.0 99 20 104/70 (81) 96 Physical Exam GENERAL: Frail cachectic middle-aged appearing male, in severe distress due to abdominal pain HEENT: Normocephalic. Atraumatic. Pupils equal, round, reactive, conjugate. Mucous membranes are dry NECK: Trachea is midline. There is no JVD. CHEST: Equal chest rise. Room air. CARDIOVASCULAR: Normal rate, regular rhythm. Sinus ABDOMEN: Scaphoid. Rigid. Both voluntary and involuntarily guarding. Positive rebound. Very peritonitic. tender to slight palpation diffusely. MUSCULOSKELETAL: Pulses 2+. No peripheral edema. NEUROLOGICAL: RASS 0. Follows commands in all 4 extremities. Very obviously painful and in distress. Laboratory Laboratory Tests Test 10/07/17 16:55 10/07/17 21:55 White Blood Count 1.7 Red Blood Count 3.03 Hemoglobin 10.3 Hematocrit 30.1 Mean Corpuscular Volume 99.2 Mean Corpuscular Hemoglobin 34.1 Mean Corpuscular Hemoglobin Concent 34.3 Red Cell Distribution Width 20.0 Platelet Count 111 Mean Platelet Volume 6.9 Neutrophils (%) (Auto) 84.9 Lymphocytes (%) (Auto) 7.7 Monocytes (%) (Auto) 6.3 Eosinophils (%) (Auto) 0.1 Basophils (%) (Auto) 1.0 Neutrophils # (Auto) 1.5 Lymphocytes # (Auto) 0.1 Monocytes # (Auto) 0.1 Eosinophils # (Auto) 0.0 Basophils # (Auto) 0.0 CBC Comment AUTO DIFF Differential Total Cells Counted 100 Neutrophils % (Manual) 64 Band Neutrophils % 12 Lymphocytes % 12 Monocytes % 9 Neutrophils # (Manual) 1.3 Metamyelocytes 3 Differential Comment FINAL DIFF MANUAL Platelet Estimate LOW Platelet Morphology Comment NORMAL Red Cell Morphology Comment NORMAL Prothrombin Time 10.0 Prothromb Time International Ratio 1.0 Activated Partial Thromboplast Time 23.5 Blood Urea Nitrogen 16 Creatinine 1.80 Random Glucose 143 Total Protein 5.9 Albumin 2.5 Calcium Level 8.0 Alkaline Phosphatase 159 Aspartate Amino Transf (AST/SGOT) 11 Alanine Aminotransferase (ALT/SGPT) 26 Total Bilirubin 0.4 Sodium Level 134 Potassium Level 3.7 Chloride Level 96 Carbon Dioxide Level 27.9 Anion Gap 10 Estimat Glomerular Filtration Rate 38 Lactic Acid Level 2.4 Lipase 65 Result Diagram: 10/07/17165410/07/171654 Caprini VTE Risk Assessment Caprini VTE Risk Assessment: Mod/High Risk (score >= 2) VTE Pharm Contraindication: Coagulopathy,INR elevated Caprini Risk Assessment Model Point Value = 1 Point Value = 2 Point Value = 3 Point Value = 5 Age 41-60 Minor surgery BMI > 25 kg/m2 Swollen legs Varicose veins or History of unexplained or recurrent spontaneous Oral contraceptives or hormone replacement Sepsis (< 1 month) Serious lung disease, including pneumonia (< 1 month) Abnormal pulmonary function Acute myocardial infarction Congestive heart failure (< 1 month) History of inflammatory bowel disease Medical patient at bed rest Age 61-74 Arthroscopic surgery Major open surgery (> 45 min) Laparoscopic surgery (> 45 min) Malignancy Confined to bed (> 72 hours) Immobilizing plaster cast Central venous access Age >= 75 History of VTE Family history of VTE Factor V Leiden Prothrombin [id number] Lupus anticoagulant Anticardiolipin antibodies Elevated serum homocysteine Heparin-induced thrombocytopenia Other congenital or acquired thrombophilia Stroke (< 1 month) Elective arthroplasty Hip, pelvis, or leg fracture Acute spinal cord injury (< 1 month) Prophylaxis Regimen Total Risk Factor Score Risk Level Prophylaxis Regimen 0-1 Low Early ambulation 2 Moderate Order ONE of the following: *Sequential Compression Device (SCD) *Heparin 5000 units SQ BID 3-4 Higher Order ONE of the following medications: *Heparin 5000 units SQ TID *Enoxaparin/Lovenox 40 mg SQ daily (WT < 150 kg, CrCl > 30 mL/min) *Enoxaparin/Lovenox 30 mg SQ daily (WT < 150 kg, CrCl > 10-29 mL/min) *Enoxaparin/Lovenox 30 mg SQ BID (WT < 150 kg, CrCl > 30 mL/min) AND/OR *Sequential Compression Device (SCD) 5 or more Highest Order ONE of the following medications: *Heparin 5000 units SQ TID (Preferred with Epidurals) *Enoxaparin/Lovenox 40 mg SQ daily (WT < 150 kg, CrCl > 30 mL/min) *Enoxaparin/Lovenox 30 mg SQ daily (WT < 150 kg, CrCl > 10-29 mL/min) *Enoxaparin/Lovenox 30 mg SQ BID (WT < 150 kg, CrCl > 30 mL/min) AND *Sequential Compression Device (SCD) Assessment and Plan Assessment and Plan Assessment: 62-year-old male with widely metastatic pancreatic cancer which is terminal and now presents with shazia peritonitis and free intraperitoneal air most likely secondary to hollow viscus rupture. Clinically, the patient will likely continue to decline. However, given the patient's poor functional status and progressive disease despite aggressive therapy, this is likely a terminal event condition for him. Palliative care will be consulted. We will work towards aggressively managing his pain. We will consult invasive radiology at their request for possible intraperitoneal drain if this is any benefit in symptom management or source control. Plan by systems: Neurologic: Severe abdominal pain Dilaudid 0.5 mg IV every 30 minutes as needed for pain Dilaudid 1 mg IV 1 now Respiratory: Incentive spirometer to bedside Wean oxygen by nasal cannula for goal SPO2 greater than 90% Cardiovascular: NS mivf @ 125cc/hr Renal: Acute kidney injury secondary to sepsis - mivf as above. -- Strict I/Os FEN/GI: Acute protein calorie malnutrition-severe Widely metastatic pancreatic cancer Hollow viscus rupture Free intraperitoneal air Severe peritonitis Intra-abdominal sepsis Lactic Acidosis - mivf - NPO - NGT to LIWS - abx coverage as below - consult invasive radiology, to see if intraperitoneal drain could help with symptom management or source control. - trend lactates Heme/ID: Stage IV Metastatic Pancreatic Cancer Leukopenia Anemia secondary to chemotherapy Thrombocytopenia secondary to chemotherapy Intra-abdominal sepsis - daily cbc - Zosyn - Diflucan - prbc transfusion - hematology consult Endocrine: Hyperglycemia of critical illness -- SSI Prophylaxis: GI Prophylaxis Pepcid IV DVT Prophylaxis -- SCDs Hold pharmacologic DVT prophylaxis in the setting of ruptured hollow viscus combined with thrombocytopenia in the setting of need for possible IR procedures Lines: Peripheral IVs Dispo: Admit to ICU. Paul Cm MD Oct 08, 2017 00:37
[2017-10-08] MEDS ORDERED: CHLORHEXIDINE GLUCONATE 2 % 1 PACK (2 CLOTHS) TOP PRN (00:45)
[2017-10-08] MEDS ORDERED: RESP: ALBUTEROL 2.5 MG/IPRATROPIUM 0.5 MG NEB (PRN) INH (00:45)
[2017-10-08] MEDS ORDERED: ONDANSETRON HCL 4 MG/2 ML VIAL IV PUSH PRN (00:45)
[2017-10-08] MEDS ORDERED: MISCELLANEOUS NURSING INFORMATION XX SCH (00:45)
[2017-10-08] MEDS ORDERED: VANCOMYCIN 1 GM/200 ML PREMIX IV ONE (01:00)
[2017-10-08] MEDS ORDERED: CHLORHEXIDINE GLUCONATE 2 % 1 PACK (2 CLOTHS) TOP SCH (04:00)
[2017-10-08] MEDS: HYDROmorphone HCL PF 2 MG/ML VIAL IV PUSH PRN ×4 (07:07→15:27)
[2017-10-08] MEDS ORDERED: FAMOTIDINE 20 MG/2 ML VIAL IV PUSH SCH (09:00)
[2017-10-08 09:30] LABS: AUTOMATED NEUTROPHIL # 1.2 TH/MM3 (1.8-7.7); BASOPHIL % 0.3 % (0.0-2.0); EOSINOPHIL % 0.1 % (0.0-4.0); HEMATOCRIT 37.5 % (39.0-51.0); HEMOGLOBIN 12.8 GM/DL (13.0-17.0); LYMPH % 11.2 % (9.0-44.0); LYMPHOCYTE # 0.2 TH/MM3 (1.0-4.8); MEAN CELL VOLUME 94.8 FL (80.0-100.0); MEAN CORPUSCULAR HEMOGLOBIN 32.4 PG (27.0-34.0); MEAN CORPUSCULAR HGB CONC 34.2 % (32.0-36.0); MEAN PLATELET VOLUME 8.3 FL (7.0-11.0); MONO % 5.8 % (0.0-8.0); MONOCYTE # 0.1 TH/MM3 (0-0.9); NEUT % 82.6 % (16.0-70.0); PLATELET COUNT 104 TH/MM3 (150-450); RED BLOOD COUNT 3.96 MIL/MM3 (4.50-5.90); RED CELL DISTRIBUTION WIDTH 21.1 % (11.6-17.2); WHITE BLOOD COUNT 1.5 TH/MM3 (4.0-11.0)
[2017-10-08 09:45] LABS: ALBUMIN 2.2 GM/DL (3.4-5.0); AST (GOT) 10 U/L (15-37); BICARBONATE 24.5 MEQ/L (21.0-32.0); BLOOD UREA NITROGEN 37 MG/DL (7-18); CALCIUM 8.1 MG/DL (8.5-10.1); CHLORIDE 100 MEQ/L (98-107); CREATININE 3.09 MG/DL (0.60-1.30); GLOMERULAR FILTRATION RATE 21 ML/MIN (>89); GLUCOSE,RANDOM 99 MG/DL (74-106); SODIUM (NA) 136 MEQ/L (136-145)
[2017-10-08 09:46] LABS: ALT (GPT) 20 U/L (12-78)
[2017-10-08 09:48] LABS: ALKALINE PHOSPHATASE 118 U/L (45-117); TOTAL PROTEIN 5.5 GM/DL (6.4-8.2)
[2017-10-08] MEDS: PIPERACIL-TAZO 3.375 GM PREMIX 50 ML IV SCH (10:00)
[2017-10-08] MEDS ORDERED: VANCOMYCIN 1,000 MG/NS 250 ML IV SCH ×2 (10:00)
[2017-10-08] MEDS ORDERED: SODIUM CHLOR 0.9% 1000 ML INJ 1,000 ML IV SCH (10:15)
[2017-10-08] MEDS ORDERED: SODIUM CHLOR 0.9% 1000 ML INJ 1,000 ML IV ONE (10:15)
[2017-10-08 10:50] LABS: BANDS 28 % (0-6); LYMPHOCYTES 10 % (9-44); MONOCYTES 11 % (0-8); MYELOCYTES 2 % (0-0); NEUTROPHIL # MANUAL DIFF 1.2 TH/MM3 (1.8-7.7); POLYS (SEG NEUTROPHILS) 49 % (16-70)
[2017-10-08 10:51] LABS: OVALOCYTES 1+ (NORMAL)
--- NOTE | 2017-10-08 11:29 | RADRPT ---
EXAM DATE/TIME: 10/08/2017 11:15 [facility] COMPARISON: CT THORAX W CONTRAST, October 07, 2017, 14:16. CT ABDOMEN & PELVIS W CONTRAST, October 07, 2017, 14:16. INDICATIONS : Would intraperitoneal drain help patient with sepsis from free air? The patient has free peritoneal fluid and pneumoperitoneum. Pancreatic mass and metastatic disease to liver., Presumably not a candidate for surgical exploration. I see no role for percutaneous drainage catheter placement in this patient. Garth Miguel MD on October 08, 2017 at 11:20 Board Certified Radiologist. This report was verified electronically.
--- NOTE | 2017-10-08 13:46 | HHI.DS ---
Discharge Summary Admission Date Oct 07, 2017 at 16:48 Admitting Diagnosis Intraperitoneal air, history of pancreatic cancer with metastasis (1) Perforated viscus ICD Code: R19.8 - Other specified symptoms and signs involving the digestive system and abdomen Diagnosis: Principal (2) Acute peritonitis ICD Code: K65.0 - Generalized (acute) peritonitis Diagnosis: Principal (3) Severe sepsis ICD Code: A41.9 - Sepsis, unspecified organism; R65.20 - Severe sepsis without septic shock Diagnosis: Principal (4) Primary pancreatic cancer with metastasis to other site ICD Code: C25.9 - Malignant neoplasm of pancreas, unspecified Diagnosis: Secondary Brief History This is a 62-year-old male with a past medical history of metastatic pancreatic cancer who is followed by Dr. Salazar and Dr. Diallo. Patient is undergoing chemoradiation and his last dose chemotherapy was 2 weeks ago. Last night, the patient developed new onset severe abdominal pain around 2100 on . He is in severe distress in my evaluation and that distress limits my obtaining a complete history. He does describe the pain as stabbing and generalized throughout his entire abdomen. He does not want to move in bed and wants to lie perfectly still. He endorses fever and chills. Endorses nausea, vomiting. Denies diarrhea or constipation. He had a CAT scan done which demonstrated free intraperitoneal air as well as new and further metastatic disease in his liver which is new relative to prior imaging. General surgery evaluated the patient and felt that he was not a good surgical candidate given his severe cachexia as well as end-stage pancreatic cancer. Interventional radiology is considering placing intraperitoneal drain for symptom and possible source control. The remainder the review of systems is negative unless otherwise stated above. CBC/BMP: 10/08/17 0830 10/08/17 0830 Significant Findings Laboratory Tests Test 10/07/17 16:55 10/07/17 21:55 10/08/17 00:30 10/08/17 08:30 White Blood Count 1.7 TH/MM3 (4.0-11.0) 1.5 TH/MM3 (4.0-11.0) Red Blood Count 3.03 MIL/MM3 (4.50-5.90) 3.96 MIL/MM3 (4.50-5.90) Hemoglobin 10.3 GM/DL (13.0-17.0) 12.8 GM/DL (13.0-17.0) Hematocrit 30.1 % (39.0-51.0) 37.5 % (39.0-51.0) Mean Corpuscular Hemoglobin 34.1 PG (27.0-34.0) Red Cell Distribution Width 20.0 % (11.6-17.2) 21.1 % (11.6-17.2) Platelet Count 111 TH/MM3 (150-450) 104 TH/MM3 (150-450) Mean Platelet Volume 6.9 FL (7.0-11.0) Neutrophils (%) (Auto) 84.9 % (16.0-70.0) 82.6 % (16.0-70.0) Lymphocytes (%) (Auto) 7.7 % (9.0-44.0) Neutrophils # (Auto) 1.5 TH/MM3 (1.8-7.7) 1.2 TH/MM3 (1.8-7.7) Lymphocytes # (Auto) 0.1 TH/MM3 (1.0-4.8) 0.2 TH/MM3 (1.0-4.8) Band Neutrophils % 12 % (0-6) 28 % (0-6) Monocytes % 9 % (0-8) 11 % (0-8) Neutrophils # (Manual) 1.3 TH/MM3 (1.8-7.7) 1.2 TH/MM3 (1.8-7.7) Metamyelocytes 3 % (0-1) Platelet Estimate LOW (NORMAL) LOW (NORMAL) Activated Partial Thromboplast Time 23.5 SEC (24.3-30.1) Creatinine 1.80 MG/DL (0.60-1.30) 3.09 MG/DL (0.60-1.30) Random Glucose 143 MG/DL (74-106) Total Protein 5.9 GM/DL (6.4-8.2) 5.5 GM/DL (6.4-8.2) Albumin 2.5 GM/DL (3.4-5.0) 2.2 GM/DL (3.4-5.0) Calcium Level 8.0 MG/DL (8.5-10.1) 8.1 MG/DL (8.5-10.1) Alkaline Phosphatase 159 U/L (45-117) 118 U/L (45-117) Aspartate Amino Transf (AST/SGOT) 11 U/L (15-37) 10 U/L (15-37) Sodium Level 134 MEQ/L (136-145) Chloride Level 96 MEQ/L (98-107) Estimat Glomerular Filtration Rate 38 ML/MIN (>89) 21 ML/MIN (>89) Lactic Acid Level 2.4 mmol/L (0.4-2.0) Lipase 65 U/L (73-393) Myelocytes 2 % (0-0) Ovalocytes 1+ (NORMAL) Blood Urea Nitrogen 37 MG/DL (7-18) Imaging CT abdomen pelvis showed Free intraperitoneal air. Site of perforation is not identified. Upper abdominal site is suspected. New metastatic disease to the liver. Enlarging peripancreatic mass. PE at Discharge GENERAL: Frail cachectic middle-aged appearing male, in severe distress due to abdominal pain HEENT: Normocephalic. Atraumatic. Pupils equal, round, reactive, conjugate. Mucous membranes are dry NECK: Trachea is midline. There is no JVD. CHEST: Equal chest rise. Room air. CARDIOVASCULAR: Normal rate, regular rhythm. Sinus ABDOMEN: Scaphoid. Rigid. Both voluntary and involuntarily guarding. Positive rebound. Very peritonitic. tender to slight palpation diffusely. MUSCULOSKELETAL: Pulses 2+. No peripheral edema. NEUROLOGICAL: RASS 0. Follows commands in all 4 extremities. Very obviously painful and in distress. Transfer Summary This is a 62-year-old male with a past medical history of metastatic pancreatic cancer who is followed by Dr. Salazar and Dr. Diallo. Patient is undergoing chemoradiation and his last dose chemotherapy was 2 weeks ago. Last night, the patient developed new onset severe abdominal pain around 2100 on . He is in severe distress in my evaluation and that distress limits my obtaining a complete history. He does describe the pain as stabbing and generalized throughout his entire abdomen. He does not want to move in bed and wants to lie perfectly still. He endorses fever and chills. Endorses nausea, vomiting. Denies diarrhea or constipation. He had a CAT scan done which demonstrated free intraperitoneal air as well as new and further metastatic disease in his liver which is new relative to prior imaging. General surgery evaluated the patient and felt that he was not a good surgical candidate given his severe cachexia as well as end-stage pancreatic cancer. Interventional radiology is considering placing intraperitoneal drain for symptom and possible source control. The remainder the review of systems is negative unless otherwise stated above. Patient was deemed not a candidate for surgical intervention. Dr. Hawley has seen the patient. Dr. Miguel from IR does not see an indication for drain placement at this time. Patient decided to elect for comfort measures and hospice. Orders written to transfer patient to hospice Hospital Course see transfer summary Pt Condition on Discharge: Deteriorating Discharge Disposition: Hospice/Med Facility Discharge Instructions DIET: Follow Instructions for: Nothing By Mouth Activities you can perform: Continue Bedrest Kasia Liang MD Oct 08, 2017 13:46
--- NOTE | 2017-10-08 13:57 | PD.CONS ---
Consult Service Palliative Care Consult Requested By FABRICIO Friedman/ MD Chandan. Primary Care Physician No Primary Care Physician Reason for Consultation a. To assist with evaluation and management of symptoms including: Pain, debility. b. To assist medical decision maker(s) with: better understanding of current medical conditions; weighing benefits/burdens of medical treatment options; making medical treatment decisions. . HPI History of Present Illness Mr. Macias is a 62-year-old male with a medical history significant for metastatic pancreatic cancer who presented to emergency room on 10/07/17 endorsing abdominal pain. Abdomen/pelvis CT revealing free intraperitoneal air , site of perforation not identified. Chest CT negative for metastatic lung disease. Laboratory workup revealing WBC 1.7, Hgb 10.3 status post transfusion of 2 packs of red blood cells on 10/06 for hemoglobin of 5.6. General surgery, Dr. Hawley consulted. Patient was deemed not a surgical candidate secondary to pancytopenia, stage IV pancreatic cancer and poor functional status. Supportive care was recommended. Interventional radiology, Dr. Miguel consulted on 10/08/17 for evaluation of percutaneous drainage catheter placement. Patient with free peritoneal fluid and pneumoperitoneum, no role for percutaneous drainage catheter placement found. Palliative care has been consulted for further clarifications of goals of care given the above. Patient originally diagnosed with ductal adenocarcinoma of pancreas in December 2016. He is being followed by Dr. Salazar. Patient status post system therapy with Gemcitabine and Abraxane, followed by Folfirinox complicated by toxicity to include chemotherapy-induced anemia, persistent nausea and diarrhea as well as fatigue requiring dose reduction. patient with progression of disease to liver and bone in spite of systemic therapy. Patient has recently completed 10 radiation treatments to pancreatic mass and lumbar spine. Patient seen in medical ICU. Alert and oriented x self, place and situation. Verbal, able to communicate needs. Patient afebrile, tachycardic with heart rate in the low 110s. Currently O2 via nasal cannula with oxygen saturation in the mid 90s. Patient endorsing abdominal pain, shortness of breath and overall fatigue. Pain is exacerbated by movement, alleviated with pain medication. In this first visit, reviewed the role of palliative care in advanced illness in regards to symptom management as well as support surrounding goals of care and advance care planning. Patient receptive to my visit. Obtained patient's past medical history and psychosocial history. Reviewed events leading to this hospitalization, clinical course and current medical management. Reviewed diagnosis of perforated viscus, not surgical candidate. Reviewed overall poor prognosis given stage IV pancreatic cancer, perforated viscus and profound physical deconditioning. Reviewed that his condition is terminal given the above. Reviewed recommendations for supportive care, symptom management. Patient electing natural , DNR/DNI. Hospice philosophy and benefits introduced at length. Patient elected to transition to comfort-directed care with hospice. Likely to discharge to hospice care center for pain and symptom management. Assisted patient with completion of designation of healthcare surrogate. Patient electing friend Alen and his Michaela Quinn as HCS. Lengthy telephone conversation with patient's friend Alen, medical update provided. Migraine a very good understanding of patient's clinical condition and overall poor prognosis. He is fully supporting of patient's wishes in favor of comfort directed care. Case discussed with Dr. Cm and FABRICIO Friedman. Case discussed with chair caner Yareli. . Function/Cognitive Trajectory Patient with progressive debility and poor activity tolerance. Reporting weight loss of approximately 60-70 pounds in the past 10 months. Requiring assistance with bathing and dressing. No cognitive deficits reported or observed. . Review of Systems Constitutional: COMPLAINS OF: Fatigue, Weight loss, Change in appetite, Pain, DENIES: Fever Endocrine: DENIES: Heat/cold intolerance Eyes: COMPLAINS OF: Vision loss, DENIES: Eye inflammation, Eye pain Ears, nose, mouth, throat: DENIES: Hearing loss, Nasal discharge, Ear Pain, Running Nose, Epistaxis Respiratory: COMPLAINS OF: Shortness of breath, DENIES: Cough, Wheezing Cardiovascular: COMPLAINS OF: Dyspnea on Exertion, DENIES: Chest pain, Lower Extremity Edema Gastrointestinal: COMPLAINS OF: Diarrhea, Nausea, DENIES: Bloody stools, Difficulty Swallowing Genitourinary: DENIES: Urinary incontinence, Hematuria Musculoskeletal: COMPLAINS OF: Back pain, DENIES: Muscle aches, Joint Swelling Integumentary: DENIES: Pruritus, Rash Hematologic/Lymphatics: COMPLAINS OF: Bruising Immunologic/Allergic: DENIES: Eczema Neurologic: DENIES: Headache, Localized weakness, Seizures, Speech Problems, Tremor Psychiatric: COMPLAINS OF: Anxiety, Depression, DENIES: Hallucinations, Agitation Past Family Social History Coded Allergies: No Known Allergies (Unverified Allergy, Unknown, 10/07/17) temazepam (Verified Allergy, Unknown, 10/07/17) Past Medical History Ductal adenocarcinoma of pancreas Hypertension Microcytic anemia Chronic tobacco use . Past Surgical History Right inguinal hernia repair Tonsillectomy . Reported Medications Multi For Him (Multiple Vitamins W/ Minerals) 1 Tab Tab 1 Tab PO DAILY Osteo Bi-Flex Advanced Tr ([facility]) 1 Tab Tab 1 Tab PO DAILY Prochlorperazine Maleate 10 Mg Tab 10 Mg PO Q6H PRN . Current Medications Medications (Trade) Dose Ordered Sig/Jai Route Start Time Stop Time Status Last Admin (NS Flush) 2 ml UNSCH PRN IV FLUSH 10/07/17 16:30 (Benadryl Inj) 25 mg UNSCH X1 PRN IV PUSH 10/07/17 17:00 10/10/17 16:59 (Tylenol) 650 mg UNSCH X1 PRN PO 10/07/17 17:00 10/10/17 16:59 Piperacillin Sod/ Tazobactam Sod 50 ml @ 100 mls/hr Q8H IV 10/07/17 18:00 10/08/17 10:00 Sodium Chloride 1,000 ml @ 125 mls/hr Q8H IV 10/07/17 22:00 (Dilaudid Pf Inj) 0.5 mg Q30M PRN IV PUSH 10/08/17 00:30 10/08/17 13:03 Pharmacy Profile Note 0 ml @ 0 mls/hr UNSCH OTHER 10/08/17 00:30 (Pepcid Inj) 10 mg Q12HR IV PUSH 10/08/17 09:00 10/08/17 08:10 (Zofran Inj) 4 mg Q6H PRN IV PUSH 10/08/17 00:45 (Duoneb Neb) 1 ampule Q2HR NEB PRN INH 10/08/17 00:45 Miscellaneous Information 1 Q361D XX 10/08/17 00:45 (Chlorhexidine 2% Cloth) 3 pack Taper DAILY@04 TOP 10/08/17 04:00 10/04/18 03:59 (Chlorhexidine 2% Cloth) 3 pack UNSCH PRN TOP 10/08/17 00:45 Vancomycin HCl 1000 mg/Sodium Chloride 250 ml @ 250 mls/hr Q24H IV 10/08/17 10:00 10/08/17 10:55 Miscellaneous Information SPECIFIC LAB TO BE DRAWN:VANCO TROUGH DATE TO... ONCE ONCE .XX 10/10/17 09:45 10/10/17 09:46 Fluconazole/ Sodium Chloride 100 ml @ 100 mls/hr Q24H IV 10/08/17 18:00 UNV Family History Father from an accident. Mother is alive. . Substance Use Tobacco: One pack per day for the past 42 years. Quit a week ago. Alcohol: Socially. Prescription med abuse: None reported. Illicits: None reported. . Psychosocial History Patient originally from [place]. 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 No children. His mother is 94 years old and resides at a custodial. Has 2 siblings, brother Abiodun and sister Zaynab. . Spiritual/Cultural Factors No catholic affiliation. . Living Will: Copy in medical record Health Care Surrogate: Copy in medical record Date completed: 10/28/1985 Living will, 10/08/17 designation of healthcare surrogate. . Health Care Surrogate(s): Patient elected friend Alen Quinn as healthcare surrogate decision maker, alternate surrogate is Michaela Quinn. . Documented care wishes: Living will with standard verbiage as it pertains to terminal condition. . Today's verbally stated goals: No code. DNR/DNI. Comfort directed care with hospice. . Family/friends goals: Friend and healthcare surrogate Alen Quinn fully supportive of patient's wishes. . Ethical and Legal Issues No ethical legal issues identified. . Physical Exam Vital Signs Date Time Temp Pulse Resp B/P (MAP) Pulse Ox O2 Delivery O2 Flow Rate FiO2 10/08/17 09:43 95 Nasal Cannula 2.00 10/08/17 08:00 97.4 114 16 112/74 (87) 92 10/08/17 08:00 108 10/08/17 07:31 108 10/08/17 07:28 97.4 114 16 112/74 (87) 92 10/08/17 06:00 97.4 108 14 98/74 (82) 92 10/08/17 06:00 108 10/08/17 05:00 97.3 107 10 101/74 (83) 92 10/08/17 04:00 112 10/08/17 04:00 97.6 112 15 103/73 (83) 95 3/22/18 03:00 109 17 93 10/08/17 03:00 109 17 93 10/08/17 02:00 97.5 114 14 84/62 (69) 93 10/08/17 02:00 114 10/08/17 01:00 97.9 112 17 107/66 (80) 92 10/08/17 00:00 102 10/07/17 23:00 97.9 103 21 104/74 (84) 95 10/07/17 22:00 106 10/07/17 21:48 97.7 109 20 117/74 (88) 99 10/07/17 21:30 98 18 117/82 (94) 97 10/07/17 20:11 93 124/85 (98) 97 10/07/17 18:51 98 18 124/85 (98) 96 Room Air 10/07/17 18:49 18 10/07/17 17:30 18 10/07/17 17:13 20 96 Room Air 10/07/17 17:08 98 18 107/78 (88) 96 Room Air 10/07/17 15:19 98.0 99 20 104/70 (81) 96 10/08/17 10/09/17 19:00 07:00 Intake Total 425 ml Balance 425 ml Packed Cells 400 ml Blood Product IV Normal Saline Flush 25 ml Exam CONSTITUTIONAL/GENERAL: This is a cachectic, frail looking male in bed in no acute distress. TUBES/LINES/DRAINS: Nasal cannula, Mccall catheter, accessed MediPort to right chest SKIN: No jaundice, rashes, or lesions. Ecchymoses on upper extremities. No wounds seen anteriorly. Skin temperature appropriate. Not diaphoretic. HEAD: Atraumatic. Normocephalic. EYES: Pupils equal and round and reactive. Extraocular motions intact. No scleral icterus. No injection or drainage. ENT: Hearing grossly normal. Nose without bleeding or purulent drainage. Moist oral mucosa. NECK: Trachea midline. Supple, nontender. CARDIOVASCULAR: Regular rate and rhythm without murmurs. Peripheral pulses symmetric. RESPIRATORY/CHEST: Symmetric, unlabored respirations. Clear, diminished to auscultation. GASTROINTESTINAL: Abdomen soft, tender. Bowel sounds present. GENITOURINARY: Without palpable bladder distension. Mccall catheter in place. MUSCULOSKELETAL: Extremities without clubbing, cyanosis, or edema. No mottling or clubbing. Significant muscle atrophy to all 4 extremities. NEUROLOGICAL: Awake and alert. Motor and sensory grossly within normal limits. Follows commands. Cognitively sharp. Moves all extremities. PSYCHIATRIC: No obvious anxiety/depression. no apparent hallucinations or other psychotic thought process. pleasant and cooperative. . Diagnostic Tests Laboratory Laboratory Tests Test 10/07/17 16:55 10/07/17 21:55 10/08/17 00:30 10/08/17 08:30 White Blood Count 1.7 TH/MM3 (4.0-11.0) 1.5 TH/MM3 (4.0-11.0) Red Blood Count 3.03 MIL/MM3 (4.50-5.90) 3.96 MIL/MM3 (4.50-5.90) Hemoglobin 10.3 GM/DL (13.0-17.0) 12.8 GM/DL (13.0-17.0) Hematocrit 30.1 % (39.0-51.0) 37.5 % (39.0-51.0) Mean Corpuscular Volume 99.2 FL (80.0-100.0) 94.8 FL (80.0-100.0) Mean Corpuscular Hemoglobin 34.1 PG (27.0-34.0) 32.4 PG (27.0-34.0) Mean Corpuscular Hemoglobin Concent 34.3 % (32.0-36.0) 34.2 % (32.0-36.0) Red Cell Distribution Width 20.0 % (11.6-17.2) 21.1 % (11.6-17.2) Platelet Count 111 TH/MM3 (150-450) 104 TH/MM3 (150-450) Mean Platelet Volume 6.9 FL (7.0-11.0) 8.3 FL (7.0-11.0) Neutrophils (%) (Auto) 84.9 % (16.0-70.0) 82.6 % (16.0-70.0) Lymphocytes (%) (Auto) 7.7 % (9.0-44.0) 11.2 % (9.0-44.0) Monocytes (%) (Auto) 6.3 % (0.0-8.0) 5.8 % (0.0-8.0) Eosinophils (%) (Auto) 0.1 % (0.0-4.0) 0.1 % (0.0-4.0) Basophils (%) (Auto) 1.0 % (0.0-2.0) 0.3 % (0.0-2.0) Neutrophils # (Auto) 1.5 TH/MM3 (1.8-7.7) 1.2 TH/MM3 (1.8-7.7) Lymphocytes # (Auto) 0.1 TH/MM3 (1.0-4.8) 0.2 TH/MM3 (1.0-4.8) Monocytes # (Auto) 0.1 TH/MM3 (0-0.9) 0.1 TH/MM3 (0-0.9) Eosinophils # (Auto) 0.0 TH/MM3 (0-0.4) 0.0 TH/MM3 (0-0.4) Basophils # (Auto) 0.0 TH/MM3 (0-0.2) 0.0 TH/MM3 (0-0.2) CBC Comment AUTO DIFF AUTO DIFF Differential Total Cells Counted 100 100 Neutrophils % (Manual) 64 % (16-70) 49 % (16-70) Band Neutrophils % 12 % (0-6) 28 % (0-6) Lymphocytes % 12 % (9-44) 10 % (9-44) Monocytes % 9 % (0-8) 11 % (0-8) Neutrophils # (Manual) 1.3 TH/MM3 (1.8-7.7) 1.2 TH/MM3 (1.8-7.7) Metamyelocytes 3 % (0-1) Differential Comment FINAL DIFF MANUAL FINAL DIFF MANUAL Platelet Estimate LOW (NORMAL) LOW (NORMAL) Platelet Morphology Comment NORMAL (NORMAL) NORMAL (NORMAL) Red Cell Morphology Comment NORMAL (NORMAL) Prothrombin Time 10.0 SEC (9.8-11.6) Prothromb Time International Ratio 1.0 RATIO Activated Partial Thromboplast Time 23.5 SEC (24.3-30.1) Blood Urea Nitrogen 16 MG/DL (7-18) 37 MG/DL (7-18) Creatinine 1.80 MG/DL (0.60-1.30) 3.09 MG/DL (0.60-1.30) Random Glucose 143 MG/DL (74-106) 99 MG/DL (74-106) Total Protein 5.9 GM/DL (6.4-8.2) 5.5 GM/DL (6.4-8.2) Albumin 2.5 GM/DL (3.4-5.0) 2.2 GM/DL (3.4-5.0) Calcium Level 8.0 MG/DL (8.5-10.1) 8.1 MG/DL (8.5-10.1) Alkaline Phosphatase 159 U/L (45-117) 118 U/L (45-117) Aspartate Amino Transf (AST/SGOT) 11 U/L (15-37) 10 U/L (15-37) Alanine Aminotransferase (ALT/SGPT) 26 U/L (12-78) 20 U/L (12-78) Total Bilirubin 0.4 MG/DL (0.2-1.0) 1.0 MG/DL (0.2-1.0) Sodium Level 134 MEQ/L (136-145) 136 MEQ/L (136-145) Potassium Level 3.7 MEQ/L (3.5-5.1) 4.6 MEQ/L (3.5-5.1) Chloride Level 96 MEQ/L (98-107) 100 MEQ/L (98-107) Carbon Dioxide Level 27.9 MEQ/L (21.0-32.0) 24.5 MEQ/L (21.0-32.0) Anion Gap 10 MEQ/L (5-15) 12 MEQ/L (5-15) Estimat Glomerular Filtration Rate 38 ML/MIN (>89) 21 ML/MIN (>89) Lactic Acid Level 2.4 mmol/L (0.4-2.0) 1.9 mmol/L (0.4-2.0) Lipase 65 U/L (73-393) Nasal Screen MRSA (PCR) MRSA NOT DETECTED (NOT Myelocytes 2 % (0-0) Ovalocytes 1+ (NORMAL) Result Diagram: 10/08/1730 10/08/1730 Imaging Patient/Family Conference Present at Family Conference: Patient and friend Alen Quinn. Family Conference Time (mins): 47 Family Conference Location: Bedside, Telephone Issues Discussed: * Palliative care role, purpose, approach * Additional medical, psychosocial, and spiritual history * Patients general health, functional status, and cognitive changes in the months leading up to the current hospitalization * Patient/family understanding of the current medical problems -metastatic pancreatic cancer, perforated viscus, profound physical deconditioning. * Patient/family understanding of prognosis -very poor prognosis for survival * Patients goals of care as best understood from advance directives and/or conversations and/or values * Current medical treatment options and benefits/burdens of those options * Likely scenarios comparing ongoing aggressive care with a transition to comfort measures only * Questions answered to the best of my ability * Palliative care contact information provided * Hospice philosophy and benefits * Risks, benefits and limitations of CPR, intubation and mechanical ventilation . Assessment and Plan Disease Oriented Problem List: (1) Perforated viscus (2) Acute peritonitis (3) Severe sepsis (4) Primary pancreatic cancer with metastasis to other site (5) Liver metastasis (6) Bone metastasis (7) Acute kidney injury Symptom Scale: (1) Abdominal pain 0-10 Scale: 8 (2) Debility 0-10 Scale: Unable to quantify Pertinent Non-Medical Issues Psychosocial: Patient originally from [place]. 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 No children. His mother is 94 years old and resides at a custodial. Has 2 siblings, brother Abiodun and sister Zaynab. Spiritual: No catholic affiliation. Legal: Advance directives completed Ethical issues impacting care: No ethical issues identified. . Important Contacts [facility] Alen Quinn/Michaela Quinn , . . Prognosis Mr. Macias is a 62-year-old male with a medical history significant for metastatic pancreatic cancer who presented to emergency room on 10/07/17 endorsing abdominal pain. Abdomen/pelvis CT revealing free intraperitoneal air , site of perforation not identified. General surgery, Dr. Hawley consulted. Patient was deemed not a surgical candidate secondary to pancytopenia, stage IV pancreatic cancer and poor functional status. Supportive care was recommended. Interventional radiology, Dr. Miguel consulted on 10/08/17 for evaluation of percutaneous drainage catheter placement. Patient with free peritoneal fluid and pneumoperitoneum, no role for percutaneous drainage catheter placement found. Overall prognosis very poor given the above. Patient hospice appropriate should he elects comfort-directed care. . Code Status: No Code Plan * CODE STATUS: No code. DNR/DNI. Community DNR signed. * HEALTHCARE DECISION-MAKING: Patient participated in medical decision making. Patient with a good understanding of his clinical condition and overall poor prognosis. Retains the ability to weight benefits vs burdens of treatment options. Patient has elected his friend Alen Quinn as healthcare surrogate decision maker, alternate is friend Michaela Quinn. * GOALS OF CARE: Patient electing to transition to comfort-directed care with hospice given overall poor prognosis given progressive metastatic pancreatic cancer, profound physical deconditioning, acute complications to include perforated viscus/peritonitis and increased symptom burden. Patient likely to discharge to hospice care center for pain and symptom management. * SYMPTOMS: = Abdominal pain, multifactorial. Secondary to pancreatic and liver cancer, perforated viscus with peritonitis. Patient with home regimen of methadone which he reports stopped taking a few days ago. Currently on hydromorphone 0.5 mg every 30 minutes as needed. Patient to be discharged to hospice care center for further pain management. = Debility: Progressive. Worsened during the past month. Likely to continue to worsen given progression of illness and acute complications. * Case discussed with Dr. Cm and FABRICIO Friedman. Case discussed with chair caner Yareli. * Palliative care contact information has been provided to patient and family. * Palliative care will continue to follow up for further clarification of goals of care as patient's clinical course continues to evolve. . Time Spent Total Floor Time (mins): 77 (Total time to include review medical records, physical exam, goals of care conversation with patient, case discussion with attending, general surgery and chair caner. Assistance with completion of advance directives.) >50% Counseling/Coord of Care: Yes Thank you for the opportunity to participate in the care of Mr. Makc. Attestation To help prompt me to consider important information that might be impacting today's encounter and assessment, information from prior notes written by myself or my colleagues may have been "brought forward" into today's note. My signature on this note, however, is an attestation that I personally performed the exam, history, and/or decision-making noted today, and, unless otherwise indicated, the interactions with patient, family, and staff as well as the review of records all occurred today. I also attest that the listed assessment and stated plan reflect my best clinical judgment today based on the combination of historical information, prior notes, and today's exam/ interactions. When time spent is documented, it refers only to time spent today by the signer, or if indicated, combined time spent today by collaborating physician/nurse practitioner. Lillian Edwards Oct 08, 2017 13:57
[2017-10-08] MEDS ORDERED: FLUCONAZOLE 200 MG PREMIX BAG 100 ML IV SCH (18:00)
[2017-10-10] MEDS ORDERED: PHARMACY ORDERED LAB ONE (09:45)
== END 2017-10-08 15:30 | disposition hospice, inpatient (51) | DRG 871 ==
LOC: PHED 15:02 → PHEDA 16:48 → HIME 21:40
PROVIDERS: ADMIT Anesthesiology; ATTEND Anesthesiology
PROC: 30233N1 Transfusion of Nonautologous Red Blood Cells into Peripheral Vein, Percutaneous Approach (ICD-10-PCS; principal; 2017-10-08)
DX: A41.9 Sepsis, unspecified organism (principal); K63.1 Perforation of intestine (nontraumatic); K65.0 Generalized (acute) peritonitis; R64 Cachexia; E43 Unspecified severe protein-calorie malnutrition; N17.9 Acute kidney failure, unspecified; C25.9 Malignant neoplasm of pancreas, unspecified; C78.7 Secondary malignant neoplasm of liver and intrahepatic bile duct; E87.2 Acidosis; Z68.1 Body mass index [BMI] 19.9 or less, adult; C79.51 Secondary malignant neoplasm of bone; R65.20 Severe sepsis without septic shock; D69.59 Other secondary thrombocytopenia; R06.02 Shortness of breath; T45.1X5A Adverse effect of antineoplastic and immunosuppressive drugs, initial encounter; R73.9 Hyperglycemia, unspecified; K66.8 Other specified disorders of peritoneum; D64.81 Anemia due to antineoplastic chemotherapy; R19.7 Diarrhea, unspecified; R11.0 Nausea; Z66 Do not resuscitate; I10 Essential (primary) hypertension; Z51.5 Encounter for palliative care; F17.210 Nicotine dependence, cigarettes, uncomplicated; Z92.21 Personal history of antineoplastic chemotherapy; Z92.3 Personal history of irradiation
CPT/HCPCS: 36430; 80053; 82948; 83605; 83690; 85007; 85027; 85610; 85730; 86920; 87641; 94150; 99291; J1170; J1450; J2270; J2405; J2543; J3010; J3370; J7030; J7050; P9016